=== PATIENT | female | born 1985 | race Caucasian/White ===

== ENCOUNTER → 2016-04-14 | Outpatient (CLI) | payer BC ==
[~2016-04-14] MED LIST: ACET500C PO; ADVI200T PO
== END ==
LOC: M SMT 14:17
PROVIDERS: ATTEND Advanced Practice Midwife
DX: O20.0 Threatened abortion (principal)

== ENCOUNTER → 2016-04-16 | Outpatient (CLI) | payer BC | LOC: M LAB 16:05 | PROVIDERS: ATTEND Advanced Practice Midwife | DX: O02.1 Missed abortion (principal) ==

== ENCOUNTER → 2016-05-28 | Outpatient (CLI) | payer BC ==
[2016-05-28 19:25] LABS: BASO % 0.6 % (0.0-1.0); EOS # 0.1 K/mm3 (0.0-0.50); EOS % 1.6 % (0.0-3.0); LARGE UNSTAINED CELL # 0.2 K/mm3 (0.0-0.4); LARGE UNSTAINED CELL % 2.5 % (0.0-4.0); LYMPH # 0.9 K/mm3 (1.5-6.5); LYMPH % 12.6 % (24.0-44.0); MEAN CORPUSCULAR HEMOGLOBIN 22.7 pg (27.0-33.0); MEAN CORPUSCULAR HGB CONC 30.4 g/dl (32.0-36.5); MEAN CORPUSCULAR VOLUME 74.8 fl (80.0-96.0); MONO # 0.5 K/mm3 (0.0-0.8); MONO % 7.1 % (0.0-5.0); NEUTROPHILS # 5.1 K/mm3 (1.8-7.7); NEUTROPHILS % 75.6 % (36.0-66.0); PLATELET COUNT, AUTOMATED 319 k/mm3 (150-450); RED CELL DISTRIBUTION WIDTH 17.9 % (11.5-14.5); WHITE BLOOD COUNT 6.7 K/mm3 (4.0-10.0)
[2016-05-29 11:43] LABS: CONTROL LINE INT CTR LINE PRESENT; HIV SCRN NEGATIVE (NEGATIVE); HIV SCRN1 NEGATIVE (NEGATIVE)
[2016-05-29 11:44] LABS: HBsAg Prenatal NEGATIVE (NEGATIVE)
== END ==
LOC: M LAB 17:12
PROVIDERS: ATTEND Advanced Practice Midwife
DX: Z34.01 Encounter for supervision of normal first pregnancy, first trimester (principal)

== ENCOUNTER → 2016-07-23 | Outpatient (CLI) | payer BC ==
--- NOTE | 2016-07-23 15:24 | REP ---
Obstetric ultrasound for anatomy: There is a single intrauterine gestation. position is variable. There is movement and cardiac activity. The heart rate is 150 beats per minute. The placenta is anterior. There is no placenta previa or abruptio. The placenta demonstrates grade zero maturity. Subjectively amniotic fluid volume is normal. The cervix measures 3.7 cm length. By today's measurements gestational age is 19 weeks 5 days with an AMI of 12/12/2016. Gestational age by LMP is 20 weeks 2 days. weight is 318 grams (0 pounds, 11 ounces). This is the 32nd percentile for 20 weeks 2 days. The following anatomic structures are identified and are unremarkable: Cranium, choroid plexus, i intracranial lateral ventricles. Cerebellum, facial profile, face, lungs, four-chamber heart, cardiac right and left ventricular outflow tracts, diaphragm, stomach, three-vessel cord, cord insertion, kidneys, bladder, spine and upper lower extremities. No anomalies are identified. Signed by Jayson Marques MD 07/23/2016 03:15 P
== END ==
LOC: M RAD 13:13
PROVIDERS: ATTEND Advanced Practice Midwife
DX: Z34.82 Encounter for supervision of other normal pregnancy, second trimester (principal); Z3A.19 19 weeks gestation of pregnancy

== ENCOUNTER → 2016-09-15 | Outpatient (CLI) | payer BC ==
[2016-09-15 12:57] LABS: MEAN CORPUSCULAR HEMOGLOBIN 25.7 pg (27.0-33.0); MEAN CORPUSCULAR HGB CONC 31.7 g/dl (32.0-36.5); MEAN CORPUSCULAR VOLUME 81.1 fl (80.0-96.0); RED CELL DISTRIBUTION WIDTH 16.1 % (11.5-14.5); WHITE BLOOD COUNT 12.1 K/mm3 (4.0-10.0)
== END ==
LOC: M LAB 11:06
PROVIDERS: ATTEND Advanced Practice Midwife
DX: Z34.82 Encounter for supervision of other normal pregnancy, second trimester (principal)

== ENCOUNTER → 2016-11-09 | Outpatient (REF) | payer BC ==
[~2016-11-09] MED LIST changes: +ACET50TA PO; +MOTR200T44 PO; +PRENTAB9 PO
== END ==
LOC: M LAB REF 17:13
PROVIDERS: ATTEND Specialist
DX: Z34.83 Encounter for supervision of other normal pregnancy, third trimester (principal)

== ENCOUNTER → 2016-11-14 | Outpatient (CLI) | payer BC ==
[~2016-11-14] VITALS: Ht 167.6 cm; Wt 76.0 kg
[~2016-11-14] MED LIST changes: +LR 1,000 ML IV ONE
[2016-11-14 09:39] VITALS: BP 115/74
[2016-11-14 10:26] LABS: BASO # 0.1 K/mm3 (0.0-0.2); BASO % 0.5 % (0.0-1.0); EOS # 0.1 K/mm3 (0.0-0.50); EOS % 1.1 % (0.0-3.0); LARGE UNSTAINED CELL # 0.1 K/mm3 (0.0-0.4); LYMPH # 1.2 K/mm3 (1.5-4.5); LYMPH % 8.6 % (24.0-44.0); MEAN CORPUSCULAR HEMOGLOBIN 24.5 pg (27.0-33.0); MEAN CORPUSCULAR VOLUME 76.6 fl (80.0-96.0); MONO # 0.9 K/mm3 (0.0-0.8); MONO % 6.9 % (0.0-5.0); NEUTROPHILS # 10.5 K/mm3 (1.8-7.7); NEUTROPHILS % 81.9 % (36.0-66.0); PLATELET COUNT, AUTOMATED 342 k/mm3 (150-450); RED CELL DISTRIBUTION WIDTH 16.5 % (11.5-14.5); WHITE BLOOD COUNT 12.8 K/mm3 (4.0-10.0)
[2016-11-14 10:37] VITALS: BP 111/73
[2016-11-14 13:17] VITALS: BP 111/65
--- NOTE | 2016-11-14 13:31 | REP ---
FOLLOWUP OB ULTRASOUND WITH BIOPHYSICAL PROFILE: 11/14/2016. Comparison: 07/23/2016. Clinical history: Spotting, decreased movement. Request for BPP, EFW and cervical length. Findings: There is a single intrauterine gestation in vertex position. Cervix is 3 cm long and closed. There is an anterior grade 2 placenta without previa or abruption. Visually the amniotic fluid volume is normal. The MATT is 9.5 cm with a normal range 7.6-24.6 and the largest fluid pocket is 4.9 cm. Mid cord umbilical artery Doppler shows an S/D ratio of 1.96 with normal forward diastolic flow and resistive index of 0.49. biometry: BPD 9 cm = 36 weeks 3 days HC 32.8 cm = 37 weeks 2 days AC 33.8 cm = 37 weeks 5 days FL 7.2 cm = 36 weeks 6 days HL 6.4 cm = 37 weeks 1 day This gives average ultrasound age 37 weeks 1 day. By initial ultrasound she is 36 weeks with EDC 12/12/2016 by LMP 36 weeks 4 days with EDC 12/08/2016. Measurement ratios are all in the normal range. The estimated weight 3174 grams or 6 pounds 15 ounces is 65th percentile for dating based on LMP. heart 131 and regular. Anatomy structures visible include the cranial vault, lateral ventricles, choroid plexus, thalami, cavum septum pellucidum, lungs, and four-chamber heart view, the diaphragm, left-sided stomach bubble, three-vessel cord with the cord insertion and the kidneys and bladder. On previous study in July the estimated weight was 32nd percentile, today it is 65th percentile. Biophysical profile: Breathing 2 Movement 2 Tone 2 AFV 2 BPP is 8/ 8. Signed by Garth White MD 11/14/2016 07:58 P
== END ==
LOC: M LDO 09:13
PROVIDERS: ATTEND Obstetrics & Gynecology
DX: O26.853 Spotting complicating pregnancy, third trimester (principal); O36.8130 Decreased fetal movements, third trimester, not applicable or unspecified; Z3A.36 36 weeks gestation of pregnancy; Z88.1 Allergy status to other antibiotic agents

== ENCOUNTER 2016-11-20 12:01 | Inpatient (IN) | payer BC ==
[~2016-11-20] VITALS: Ht 167.6 cm; Wt 76.0 kg
[2016-11-20] VITALS (7 sets, daily range): BP systolic 90–126; BP diastolic 55–72
[~2016-11-20 12:01] MED LIST changes: -ACET50TA PO; -LR 1,000 ML IV ONE; -MOTR200T44 PO
[2016-11-20] MEDS ORDERED: LACTATED RINGER'S 1000 ML IV STA (12:32)
[2016-11-20] MEDS ORDERED: PENICILLIN G POTASSIUM IV 5 MU in D5W MINI-BAG PLUS 100 ML IV STA (12:32)
[2016-11-20] MEDS ORDERED: LR 1,000 ML IV SCH (13:00)
[2016-11-20] MEDS ORDERED: OXYTOCIN DRIP 30 UNITS in APPROPRIATE DILUENT 1 EA IV SCH (13:00)
[2016-11-20 13:18] LABS: MEAN CORPUSCULAR HEMOGLOBIN 24.3 pg (27.0-33.0); MEAN CORPUSCULAR HGB CONC 31.4 g/dl (32.0-36.5); MEAN CORPUSCULAR VOLUME 77.3 fl (80.0-96.0); RED CELL DISTRIBUTION WIDTH 16.8 % (11.5-14.5); WHITE BLOOD COUNT 11.1 K/mm3 (4.0-10.0)
[2016-11-20] MEDS ORDERED: PENICILLIN G POTASSIUM IV 2.5 MU in D5W 100 ML IV SCH (17:00)
--- NOTE | 2016-11-20 22:21 | HPE ---
DATE OF ADMISSION: 11/20/2016 31-year-old 3, para 1-0-1-1, estimated date of delivery 12/08/2016 presents at 37 weeks 3 days after spontaneous rupture of membranes, clear fluid [id number]. Reports only mild cramping. Fetus is active. No bleeding. Last normal menstrual period 03/03/2016 for AMI of 12/08/2016, sonogram at 6 weeks confirmed date. Anatomy scan within normal limits. Appropriate care. OBSTETRICAL HISTORY: November 2013 normal spontaneous vaginal , viable female, 41 weeks, 7 pounds, 7 ounces. 2016 early miscarriage. ALLERGIES: She is allergic to CIPROFLOXACIN MEDICAL-SURGICAL: History of Crohn disease FAMILY HISTORY: Noncontributory. SOCIAL HISTORY: . Father of the baby present and supportive. Denies tobacco, alcohol, drugs or abuse. OBJECTIVE: Prepregnancy weight 130, total weight gain 48 pounds. A+, antibody negative, Pap within normal limits. Rubella immune, VDRL, hepatitis B, hepatitis C, human immunodeficiency virus (HIV), gonorrhea, Chlamydia all negative. Declined genetic screening. 1-hour glucose 94 and group B strep is positive. Vital signs are stable. She is in no apparent distress. Heart rate is regular. Respirations are easy. Abdomen is soft, gravid, longitudinal lie. Irregular contractions 45 minutes apart. heart 125, moderate variability, occasional variable deceleration, clear fluid draining per vagina. Sterile vaginal exam, 2 cm, 80% -1 station, cephalic. ASSESSMENT: Multip at term, early labor, premature rupture of membranes (PROM) category two tracing. PLAN: Admit, hydrate group B strep prophylaxis. Consider Pitocin augmentation. Anticipate normal spontaneous vaginal . The patient plans to labor ad satya. MTDD
[2016-11-20] MEDS: PENICILLIN G POTASSIUM IV 2.5 MU in D5W 100 ML IV SCH (23:00)
[2016-11-21] VITALS (8 sets, daily range): BP systolic 94–132; BP diastolic 62–78
[2016-11-21] MEDS ORDERED: BUTORPHANOL 2 MG/ML INJ (J0595) IV ONE ×2 (02:15→05:00)
[2016-11-21] MEDS ORDERED: PROMETHAZINE INJ 25 MG/ML VIAL (J2550) IV ONE (02:15)
[2016-11-21] MEDS: PENICILLIN G POTASSIUM IV 2.5 MU in D5W 100 ML IV SCH (03:02)
[2016-11-21] MEDS ORDERED: IBUPROFEN 800 MG TAB PO PRN (05:45)
[2016-11-21] MEDS ORDERED: DOCUSATE SODIUM 100 MG CAP PO PRN (05:45)
[2016-11-21] MEDS ORDERED: DIBUCAINE 1% OINTMENT 30GM TOP PRN (05:45)
[2016-11-21] MEDS ORDERED: ACETAMINOPHEN 500 MG TAB PO PRN (05:45)
[2016-11-21] MEDS ORDERED: MEASLES,MUMPS,RUBELLA VACCINE INJ (MMR-II) (90707) SC SCH (05:45)
[2016-11-21] MEDS ORDERED: RHOGAM 300 MCG (1500 IU) INJ (J2790) IM SCH (05:45)
[2016-11-21] MEDS ORDERED: LIDOCAINE 1% MDV INJ 50 ML VIAL INFIL ONE (05:45)
[2016-11-21] MEDS ORDERED: METHYLERGONOVINE MALEATE 0.2 MG TAB PO PRN (05:45)
[2016-11-21] MEDS ORDERED: MOM 30ML SUSPENSION UDC PO PRN (05:45)
[2016-11-21] MEDS: PRENATAL VITAMINS CHEWABLE TABLET PO SCH (09:00)
[2016-11-22 07:00] VITALS: BP 133/67
[2016-11-22] MEDS ORDERED: ACET50TA PO (09:00)
[2016-11-22] MEDS ORDERED: MOTR200T44 PO (09:00)
[2016-11-22] MEDS: PRENATAL VITAMINS CHEWABLE TABLET PO SCH (09:00)
--- NOTE | 2016-11-22 10:41 | DN ---
DATE: 11/21/2016 Spontaneous rupture of membranes, clear fluid, 11/20/2016 at 0930 hours. Onset of mild contractions thereafter at 1230. Pitocin augmentation of labor. Utilized Stadol for labor coping. Fully dilated 0457. Viable female delivered OWEN through tight nuchal cord at 0503. Spontaneous respirations with stimulation. Transitioned on maternal abdomen. Cord doubly clamped and cut once pulsations ceased. scores 8 and 9. Placenta Dolan intact with three-vessel cord at 0511. Fundus firmed with massage and IV Pitocin bolus. First-degree perineal laceration and left labial abrasion repaired with Vicryl Rapide after infiltration with lidocaine. Estimated blood loss 100 mL. Infant weight 2190 grams, 6 pounds 6 ounces. Parents are naming their child Radha. Sponge, sharp and instrument count correct. Mother and baby doing well.
== END 2016-11-22 12:00 | disposition home or self-care (01) | DRG 560 ==
LOC: M LDO 12:01 → M LDI 12:41 → M OBS 11-21 08:39
PROVIDERS: ADMIT Advanced Practice Midwife; ATTEND Advanced Practice Midwife
PROC: 10E0XZZ Delivery of Products of Conception, External Approach (ICD-10-PCS; principal; 2016-11-21)
PROC: 0HQ9XZZ Repair Perineum Skin, External Approach (ICD-10-PCS; 2016-11-21)
DX: O42.02 Full-term premature rupture of membranes, onset of labor within 24 hours of rupture (principal); O99.820 Streptococcus B carrier state complicating pregnancy; Z37.0 Single live birth; Z3A.37 37 weeks gestation of pregnancy; Z88.8 Allergy status to other drugs, medicaments and biological substances; O69.89X0 Labor and delivery complicated by other cord complications, not applicable or unspecified; O70.0 First degree perineal laceration during delivery

== ENCOUNTER 2018-02-24 23:36 | Emergency (ER) | payer BC ==
[2018-02-25 01:12] LABS: BASO # 0.1 10^3/uL (0.0-0.2); BASO % 0.4 % (0.0-1.0); EOS # 0.1 10^3/uL (0.0-0.50); EOS % 1.1 % (0.0-3.0); HEMATOCRIT 35.2 % (36.0-47.0); HEMOGLOBIN 10.9 g/dl (12.0-15.5); IMMATURE GRANULOCYTE % 0.4 % (0-3.0); LYMPH # 0.7 10^3/uL (1.5-4.5); LYMPH % 5.4 % (24.0-44.0); MEAN CORPUSCULAR HEMOGLOBIN 22.3 pg (27.0-33.0); MEAN CORPUSCULAR VOLUME 72.1 fl (80.0-96.0); MONO # 0.7 10^3/uL (0.0-0.8); MONO % 5.2 % (0.0-5.0); NEUTROPHILS # 11.6 10^3/uL (1.8-7.7); NEUTROPHILS % 87.5 % (36.0-66.0); PLATELET COUNT, AUTOMATED 420 10^3/uL (150-450); RED BLOOD COUNT 4.88 10^6/uL (4.00-5.40); RED CELL DISTRIBUTION WIDTH 17.4 % (11.5-14.5); WHITE BLOOD COUNT 13.2 10^3/uL (4.0-10.0)
[2018-02-25 01:44] LABS: ALBUMIN/GLOBULIN RATIO 0.73 (1.00-1.93); ALKALINE PHOSPHATASE 83 U/L (45-117); ALT/SGPT 17 U/L (12-78); ANION GAP 7 MEQ/L (8-16); AST/SGOT 16 U/L (7-37); BILIRUBIN,DIRECT 0.1 MG/DL (0.0-0.2); BILIRUBIN,TOTAL 0.3 MG/DL (0.2-1.0); BLOOD UREA NITROGEN 9 MG/DL (7-18); CALCIUM LEVEL 8.8 MG/DL (8.5-10.1); CARBON DIOXIDE LEVEL 26 MEQ/L (21-32); CHLORIDE LEVEL 108 MEQ/L (98-107); CREATININE FOR GFR 0.76 MG/DL (0.55-1.30); GLOMERULAR FILTRATION RATE > 60.0 (>60); GLUCOSE, FASTING 101 MG/DL (70-100); LIPASE 100 U/L (73-393); POTASSIUM SERUM 4.1 MEQ/L (3.5-5.1); SODIUM LEVEL 141 MEQ/L (136-145); TOTAL PROTEIN 7.1 GM/DL (6.4-8.2)
[2018-02-25] MEDS ORDERED: ISOVUE-370 76% 100ML VIAL (Q9967) As Ordered (02:14)
[2018-02-25] MEDS: predniSONE 20 MG TAB PO (03:45)
[2018-02-25] MEDS: MESALAMINE 250 MG CR CAP PO (03:45)
== END 2018-02-25 04:01 | disposition home or self-care (01) ==
LOC: M ED 23:36
DX: K50.919 Crohn's disease, unspecified, with unspecified complications (principal); Z88.1 Allergy status to other antibiotic agents
CPT/HCPCS: Q9967

== ENCOUNTER → 2018-06-27 | Outpatient (REF) | payer BC ==
[~2018-06-27] MED LIST changes: +MAPA500T2 PO; +MOTR200T44 PO; +PENT500C PO; +PRED20TA PO; +ZOFR4TAB14 PO
[2018-06-27 13:15] LABS: BASO % 0.5 % (0.0-1.0); EOS # 0.1 10^3/uL (0.0-0.50); EOS % 1.7 % (0.0-3.0); HEMATOCRIT 32.8 % (36.0-47.0); HEMOGLOBIN 10.5 g/dl (12.0-15.5); LYMPH # 1.1 10^3/uL (1.5-4.5); LYMPH % 13.1 % (24.0-44.0); MEAN CORPUSCULAR HEMOGLOBIN 24.4 pg (27.0-33.0); MEAN CORPUSCULAR VOLUME 76.1 fl (80.0-96.0); MONO # 0.7 10^3/uL (0.0-0.8); MONO % 7.9 % (0.0-5.0); NEUTROPHILS # 6.3 10^3/uL (1.8-7.7); NEUTROPHILS % 76.4 % (36.0-66.0); PLATELET COUNT, AUTOMATED 358 10^3/uL (150-450); RED BLOOD COUNT 4.31 10^6/uL (4.00-5.40); WHITE BLOOD COUNT 8.2 10^3/uL (4.0-10.0)
[2018-06-27 13:26] LABS: CHLAMYDIA DNA AMPLIFICATION NEGATIVE (NEGATIVE); GC DNA AMPLIFICATION NEGATIVE (NEGATIVE)
[2018-06-27 13:37] LABS: HEPATITIS C VIRUS ABY INDEX 0.1 INDEX (<0.8); HIV 1&2 SCREEN CENTAUR NEGATIVE (NEGATIVE); RUBELLA IgG QUALITATIVE IMMUNE (IMMUNE)
== END ==
LOC: M LABDRAW1 11:48
PROVIDERS: ATTEND Advanced Practice Midwife
DX: Z34.81 Encounter for supervision of other normal pregnancy, first trimester (principal); Z3A.09 9 weeks gestation of pregnancy

== ENCOUNTER → 2018-08-18 | Outpatient (CLI) | payer BC ==
--- NOTE | 2018-08-19 05:31 | REP ---
Clinical: Anatomical evaluation. Comparison: None . Findings: Examination demonstrates a single live intrauterine in transverse (head to maternal left) presentation. motion is identified by technologist. Placenta is noted anterior and grade zero without evidence for placenta previa or abruption. Amniotic fluid volume is normal. Cervix measures 5.4 cm in length and appears closed. No evidence for nuchal cord. Gestational age by LMP 19 weeks 6 days with AMI 01/06/2019 . Gestational age by current measurements 19 weeks 5 days with AMI I would 28 19 . FHR equals 137 beats per minute. BPD 4.7 cm 20 weeks 1 day HC 17.4 cm 19 weeks 6 days AC 14.9 cm 20 weeks 1 day FL 3.1 cm 19 weeks 4-day HL 2.8 cm 19 weeks 1 day HC/AC ratio 1.17 Estimated weight 319 grams ( 47th percentile). Anatomical assessment demonstrates normal structures including cranium, choroid plexus, cavum, cerebellum/posterior fossa, facial features, lungs, four-chamber heart/ventricular outflow tracts, diaphragm, stomach, cord insertion/three-vessel cord, kidneys/bladder, spine, and extremities. Impression: Single live intrauterine in transverse lie demonstrating appropriate interval growth. Anatomical assessment is complete and normal. No gross abnormalities are identified. Electronically Signed by Keven Dimas MD 08/19/2018 05:22 A
== END ==
LOC: M RAD 11:59
PROVIDERS: ATTEND Advanced Practice Midwife
DX: Z34.82 Encounter for supervision of other normal pregnancy, second trimester (principal); Z3A.19 19 weeks gestation of pregnancy

== ENCOUNTER → 2018-10-14 | Outpatient (CLI) | payer BC ==
[~2018-10-14] MED LIST changes: +CALC500C15 PO; +CALTAB PO; +[UNRECOGNIZED DRUG - OTHER] PO
[2018-10-14 14:29] LABS: HEMOGLOBIN 9.7 g/dl (12.0-15.5); MEAN CORPUSCULAR HEMOGLOBIN 26.1 pg (27.0-33.0); MEAN CORPUSCULAR HGB CONC 31.3 g/dl (32.0-36.5); MEAN CORPUSCULAR VOLUME 83.3 fl (80.0-96.0); PLATELET COUNT, AUTOMATED 310 10^3/uL (150-450); RED BLOOD COUNT 3.72 10^6/uL (4.00-5.40); WHITE BLOOD COUNT 11.8 10^3/uL (4.0-10.0)
== END ==
LOC: M LAB 12:53
PROVIDERS: ATTEND Advanced Practice Midwife
DX: Z34.82 Encounter for supervision of other normal pregnancy, second trimester (principal)

== ENCOUNTER 2018-10-17 17:49 | Inpatient (IN) | payer BC ==
[~2018-10-17] VITALS: Ht 167.6 cm; Wt 75.7 kg
[~2018-10-17 17:49] MED LIST changes: -CALC500C15 PO; -CALTAB PO; -[UNRECOGNIZED DRUG - OTHER] PO
[2018-10-17] MEDS ORDERED: CALC500C15 PO (18:01)
[2018-10-17] MEDS ORDERED: [UNRECOGNIZED DRUG - OTHER] PO (18:01)
[2018-10-17] MEDS ORDERED: CALTAB PO (18:01)
[2018-10-17 18:09] VITALS: BP 108/55
[2018-10-17] MEDS ORDERED: LACTATED RINGER'S 1000 ML IV STA (18:15)
[2018-10-17 18:37] LABS: HEMATOCRIT 33.2 % (36.0-47.0); HEMOGLOBIN 10.4 g/dl (12.0-15.5); MEAN CORPUSCULAR HEMOGLOBIN 25.5 pg (27.0-33.0); MEAN CORPUSCULAR HGB CONC 31.3 g/dl (32.0-36.5); MEAN CORPUSCULAR VOLUME 81.4 fl (80.0-96.0); PLATELET COUNT, AUTOMATED 267 10^3/uL (150-450); RED BLOOD COUNT 4.08 10^6/uL (4.00-5.40)
[2018-10-17] MEDS ORDERED: ACETAMINOPHEN *IV* 1,000 MG in APPROPRIATE DILUENT 1 EA IV ONE (19:00)
[2018-10-17 19:04] LABS: APPEARANCE, URINE HAZY (CLEAR); BACTERIA, URINE AUTO 1+ (NEGATIVE); BILIRUBIN, URINE AUTO NEGATIVE (NEGATIVE); BLOOD, URINE BLOOD NEGATIVE (NEGATIVE); COLOR, URINE YELLOW (YELLOW); GLUCOSE, URINE (UA) AUTO NEGATIVE (NEGATIVE); KETONE, URINE AUTO TRACE mg/dL (NEGATIVE); LEUKOCYTE ESTERASE, URINE AUTO TRACE (NEGATIVE); MUCUS, URINE SMALL (NEGATIVE); NITRITE, URINE AUTO NEGATIVE (NEGATIVE); PROTEIN, URINE AUTO NEGATIVE (NEGATIVE); RBC, URINE AUTO 0 /HPF (0-3); SPECIFIC GRAVITY URINE AUTO 1.013 (1.002-1.035); SQUAMOUS EPITHELIAL CELL UR AU 1 /HPF (0-6); UROBILINOGEN, URINE AUTO 0.2 mg/dL (0.0-2.0); WBC, URINE AUTO 1 /HPF (0-3)
[2018-10-17 19:10] VITALS: BP 120/60
[2018-10-17 19:26] LABS: ALBUMIN 2.3 GM/DL (3.2-5.2); ALT/SGPT 10 U/L (12-78); AMYLASE 55 U/L (25-115); BILIRUBIN,TOTAL 0.5 MG/DL (0.2-1.0); BLOOD UREA NITROGEN 8 MG/DL (7-18); CALCIUM LEVEL 8.8 MG/DL (8.5-10.1); CARBON DIOXIDE LEVEL 22 MEQ/L (21-32); CHLORIDE LEVEL 107 MEQ/L (98-107); CREATININE FOR GFR 0.62 MG/DL (0.55-1.30); GLOMERULAR FILTRATION RATE > 60.0 (>60); GLUCOSE, FASTING 83 MG/DL (70-100); LIPASE 95 U/L (73-393); POTASSIUM SERUM 4.1 MEQ/L (3.5-5.1); SODIUM LEVEL 139 MEQ/L (136-145); TOTAL PROTEIN 6.8 GM/DL (6.4-8.2)
[2018-10-17] MEDS: ONDANSETRON 4MG/2ML VIAL (J2405) IV PRN (19:39)
[2018-10-17] MEDS: LR 1,000 ML IV SCH (19:40)
[2018-10-17 21:24] VITALS: BP 96/52
--- NOTE | 2018-10-17 21:24 | IPNPDOC ---
Text Note Date of Service The patient was seen on 10/17/18. NOTE Subjective: Patient is a 32-year-old female who is a at 28+ weeks pre gnant with an AMI of 01/06/19 based off of her LMP and consistent with her first trimester ultrasound. She initiated care in her first trimester with [facility]. Her has been complicated by a Crohn's flare-up. She reports that her abdominal pain started at the end of September. She was given Prednisone 20 mg BID for 4 days to help with her flare on 10/03/18. Patient reports some improvement with this therapy. She states she became very uncomfortable today with spasms and stabbing pain in her upper abdomen that radiates to her mid back. She also reports chills that started this afternoon. She denies any dysuria or frequency. She states she feels like she has in the past when she has had a flare-up but reports she hasn't gotten a fever before. She does report nausea but has not vomited. Medical history: Crohn's (stopped maintenance medication in 2013 prior to and has not been seen by specialist since then as her physician retired), IBS-diarrhea Surgical history: none Social history: . Former smoker. No history of alcohol or drug abuse. Patient is a registered nurse. No history of abuse. Family history: non-contributory. Objective: labs and vital signs: see below. FHR on admission was in the 200's and decreased to 175 with a fluid bolus and then 150's after she received acetaminophen. FHR is appropriate for gestational age. No contractions noted. General: A+Ox3. Cardiovascular: regular rate and rhythm without murmur. Respiratory: regular rate with no use of accessory muscles. Lungs clear bilaterally. Abdomen: gravid. Non-tender to palpation. Negative CVA tenderness. Assessment: IUP at 28.3 weeks gestation, flare up of Crohn's, fever Plan: Saline lock with IV hydration ordered. Acetaminophen ordered via IV for fever. Zofran ordered for nausea. Labs and blood cultures ordered. Dr. Peterson consulted on plan of care. Patient does not have an elevated WBC count or any abnormal lab values. Her fever has improved with acetaminophen and her pain has improved to a 3/10 from a 7/10. We will continue to observe at this time. NST's every 4 hours. Will start GI consult in am. VS,Fishbone, I+O VS, Fishbone, I+O Laboratory Tests 10/17/18 18:27 Red Blood Count 4.08, Mean Corpuscular Volume 81.4, Mean Corpuscular Hemoglobin 25.5 L, Mean Corpuscular Hemoglobin Concent 31.3 L, Red Cell Distribution Width 15.5 H, Calcium Level 8.8, Aspartate Amino Transf (AST/SGOT) 23, Alanine Aminotransferase (ALT/SGPT) 10 L, Alkaline Phosphatase 97, Total Bilirubin 0.5, Total Protein 6.8, Albumin 2.3 L Vital Signs Date Time Temp Pulse Resp B/P (MAP) Pulse Ox O2 Delivery O2 Flow Rate FiO2 10/17/18 19:49 100.0 10/17/18 19:10 114 16 120/60 (80) Vital Signs Label Value Date Time Patient Temperature 101.4 degrees F 10/17/181808 Temperature Source Temporal 10/17/181808 Pulse 112 10/17/181808 Respiratory Rate 16 bpm 10/17/181808 Blood Pressure Assessment 108/55 (72) 10/17/181808 Source Automatic Cuff (NIBP) Vital Signs Label Value Date Time Patient Temperature 102.8 degrees F 10/17/181899 Temperature Source Temporal 10/17/181899 Respiratory Rate 16 bpm 10/17/181899 ANDI HOWARD CNM Oct 17, 2018 21:24
[2018-10-18] VITALS (9 sets, daily range): BP systolic 77–106; BP diastolic 39–58
[2018-10-18] MEDS ORDERED: ACETAMINOPHEN *IV* 1,000 MG in APPROPRIATE DILUENT 1 EA IV ONE (02:15)
[2018-10-18] MEDS: LR 1,000 ML IV SCH ×3 (02:32→20:50)
[2018-10-18] MEDS: ONDANSETRON 4MG/2ML VIAL (J2405) IV PRN (02:32)
[2018-10-18] MEDS: ACETAMINOPHEN 500 MG TAB PO PRN ×2 (02:32→08:51)
[2018-10-18 06:24] LABS: BASO % 0.2 % (0.0-1.0); EOS % 0.1 % (0.0-3.0); HEMATOCRIT 27.7 % (36.0-47.0); HEMOGLOBIN 8.9 g/dl (12.0-15.5); LYMPH % 1.9 % (24.0-44.0); MEAN CORPUSCULAR HEMOGLOBIN 26.3 pg (27.0-33.0); MEAN CORPUSCULAR HGB CONC 32.1 g/dl (32.0-36.5); MONO # 0.4 10^3/uL (0.0-0.8); MONO % 3.3 % (0.0-5.0); NEUTROPHILS # 12.1 10^3/uL (1.8-7.7); NEUTROPHILS % 93.9 % (36.0-66.0); PLATELET COUNT, AUTOMATED 219 10^3/uL (150-450); RED BLOOD COUNT 3.38 10^6/uL (4.00-5.40); WHITE BLOOD COUNT 12.8 10^3/uL (4.0-10.0)
[2018-10-18 06:44] LABS: LYMPH # 0.2 10^3/uL (1.5-4.5)
[2018-10-18] MEDS ORDERED: FIORICET TAB PO ONE (16:00)
--- NOTE | 2018-10-18 16:22 | REP ---
MRI ABDOMEN WITHOUT CONTRAST: Multiple sequences obtained in the axial, coronal and sagittal planes without the use of intravenous contrast. A gravid uterus is noted containing a fetus with an estimated age of 28 weeks and an anterior placenta. The liver, spleen, adrenals, pancreas and kidneys appear essentially unremarkable. There is mild fullness of the right renal pelvis. Bowel loops on the left appear unremarkable. On the right, there does appear to be a long segment of thickening of the distal ileum as seen on prior CT of 02/25/2018. Trace surrounding free fluid is seen. There is no definite thickening of the right colon. I do not see evidence of adenopathy. Gallbladder is grossly unremarkable. I do not see evidence of biliary dilatation. IMPRESSION: Once again, there is a fairly long segment of thickening of the terminal ileum with trace surrounding free fluid compatible with Crohn's disease. Gravid uterus noted with fetus approximately 28 to 29 weeks gestational age and anterior placenta. Electronically Signed by Jayson Barragan MD 10/20/2018 10:56 A
--- NOTE | 2018-10-18 16:29 | REP ---
MRI PELVIS WITHOUT CONTRAST: Multiple sequences obtained in the axial, coronal and sagittal planes without the use of intravenous contrast material. A gravid uterus is noted containing a 28 to 29 week fetus. Prominent vasculature is seen surrounding the uterus. Visualized colon demonstrates no definite wall thickening. Portions of the distal ileum appear thickened, better seen on today's MRI of the abdomen. Other visualized pelvic structures appear unremarkable. I see no evidence of adenopathy. IMPRESSION: Thickened distal ileum compatible with Crohn's disease. No other pelvis abnormality. Electronically Signed by Jayson Barragan MD 10/20/2018 10:56 A
[2018-10-18] MEDS: methylPREDNISolone INJ 40 MG/1 ML VIAL (J2920) IV SCH (17:44)
--- NOTE | 2018-10-18 18:30 | CR ---
DATE OF CONSULTATION: 10/18/2018 STATUS OF THE PATIENT: Inpatient. CONSULTATION REPORT FOR: Obstetric (OB) service, Dr. Peterson. REASON FOR CONSULTATION: Patient with Crohn's flare. 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 The patient has discontinued her maintenance medications (pentasa) several years ago after one of her pregnancies in 2013 and has had no issues since that time. The patient at this time is 28 weeks and has been doing well throughout her until the end of September 2018 for approximately 7-10 days has been having increasing bouts of right lower quadrant abdominal discomfort associated with some loose stools and some nausea. She was started on a four-day course of prednisone therapy for a presumed Crohn's flare which has improved her symptoms somewhat. However, on 10/17/2018, she suddenly had increasing abdominal pain and spasms and presented to the emergency room for further management. The patient states that her symptoms are classic as she remembers having a previous Crohn's flare in the past. She is somewhat concerned that she does have a little bit more of a fever which is unusual for her previous flares. She denies any severe nausea, although her abdominal pain and nausea does increase with eating. She denies any bloody stools. She denies any shaking chills. Her overnight course since yesterday has been noted for some intermittent bouts of crampy abdominal pain and a single temperature reading of 102.1 which has resolved back to 99.8 at this time. PAST MEDICAL HISTORY: Crohn's disease diagnosed at age 16, maintained on Pentasa and intermittent courses of prednisone approximately once or twice a year at the most, and no maintenance medications since at least 2013. PAST SURGICAL HISTORY: None. FAMILY HISTORY: Negative for colorectal carcinoma, inflammatory bowel disease. SOCIAL HISTORY: Negative for tobacco. Negative for alcohol. REVIEW OF SYSTEMS: GENERAL: Negative for night sweats, fevers or chills. Negative for significant weight loss. PULMONARY: Negative hemoptysis, pleuritic-type chest pain. CARDIAC: Negative for orthopnea, paroxysmal nocturnal dyspnea (PND). GASTROINTESTINAL (GI): As per history of present illness (HPI). GENITOURINARY (): Negative for hematuria, dysuria. MUSCULOSKELETAL: Negative for myalgias, arthralgias. SKIN: Negative for rashes or skin lesions. PHYSICAL EXAMINATION: Temperature 97.9, pulse 83, respiratory rate is 16, blood pressure 117/39. GENERAL: She is awake, alert and oriented times, comfortably in bed. She is nontoxic in appearance. HEAD, EYES, EARS, NOSE AND THROAT: Grossly without abnormalities. Sclerae are free of icterus. Neck is supple. No lymphadenopathy or thyromegaly. CHEST: Clear bilaterally. HEART: Regular rate and rhythm, S1, S2. No murmurs or gallops are appreciated. ABDOMEN: Gravid. It is soft, moderately tender in right lower quadrant and right flank area to deep palpation. There is no rebound tenderness. EXTREMITIES: Negative for edema. LABORATORY FINDINGS: WBC 12.8, hemoglobin 8.9, hematocrit 27.7, platelet count is 219. BUN 8, creatinine 0.62, albumin 2.3, AST 23, ALT 10, sodium 139, potassium 4.1, chloride 107, CO2 22. 10/18/2018 MRI abdomen and pelvis: Impression: 1. Once again there is fairly long segment of thickening of the terminal ileum with trace surrounding free fluid compatible with Crohn's disease. 2. Gravid uterus is noted with fetus approximately 28-29 weeks gestational age and anterior placenta. IMPRESSION: 1. Crohn's disease flare. 2. at 28 weeks. RECOMMENDATIONS: 1. Solu-Medrol 40 mg IV every 12 hours times the next 48 hours. At which point, we will try to switch her over to either prednisone 40 bid or to budesonide 9 mg daily. 2. Pentasa 500 mg by mouth three times a day (I will start the Pentasa mainly because the patient has had good results with this in the past). 3. Depending on progress over the next 48 hours, additional recommendations will follow. MTDD
[2018-10-18] MEDS: DOCUSATE SODIUM 100 MG CAP PO PRN (20:50)
[2018-10-18] MEDS: MESALAMINE 250 MG CR CAP PO SCH (20:50)
[2018-10-19 02:51] VITALS: BP 85/48
[2018-10-19] MEDS ORDERED: BUTORPHANOL 2 MG/ML INJ (J0595) IV ONE (03:45)
[2018-10-19] MEDS ORDERED: PROMETHAZINE INJ 25 MG/ML VIAL (J2550) IV ONE (03:45)
[2018-10-19 06:25] VITALS: BP 80/41
[2018-10-19 06:26] VITALS: BP 87/54
[2018-10-19] MEDS: LR 1,000 ML IV SCH ×2 (06:36→20:35)
[2018-10-19] MEDS: methylPREDNISolone INJ 40 MG/1 ML VIAL (J2920) IV SCH ×2 (06:36→18:17)
[2018-10-19 06:39] VITALS: BP 91/51
--- NOTE | 2018-10-19 08:05 | NUR ---
Progress Note S: Reports one episode of pain overnight, spontaneously resolved. Tolerating clear PO fluids. After eating dinner (small amount of salad) had some pain. Denies contractions, vaginal bleeding and LOF. Fetus is active. No rectal bleeding. O:T98.1 P68 R16, B/P 91/51 A&O x 3 NAD EFM not applied Abdomen: soft, non-tender to palpation A: IUP a 28 and 2/7 weeks. Chron's disease P: Continue IV solumedrol, advance diet slowly. Transfer to antepartum unit. continue with IV steroids for remission. NST once daily. Plan growth sono at 30 weeks. Observe
[2018-10-19] MEDS: MESALAMINE 250 MG CR CAP PO SCH ×3 (09:00→20:34)
--- NOTE | 2018-10-19 17:46 | IPN ---
DATE: 10/19/2018 Ms. Gama has been doing relatively well. She has had significant improvement in her abdominal pain with the third dose of Solu-Medrol since yesterday. She is due for one more dose in the morning. She has had a small meal this morning that went down quite well. She had not developed any further abdominal pain. She does have still a little bit of fear of eating and did not push it too hard. She has not had any further febrile episodes. She has not had any stools and actually is complaining of some constipation. PHYSICAL EXAMINATION: Temperature 98.1, pulse is 68, respiratory rate 16, blood pressure 91/51. General: She is awake, alert, and oriented times three, nontoxic. She looks well. Abdomen is soft. Positive, good bowel sounds throughout and only slightly tender on very deep palpation only. There are no peritoneal signs, rebound tenderness. Her abdomen is gravid. IMPRESSION: 1. Crohn flare with abdominal pain and nausea. 2. A 29-week . RECOMMENDATIONS: 1. Continue Solu-Medrol dose for two or three more doses, and then this can probably be discontinued. 2. Start budesonide/Entocort EC 9 mg daily tomorrow morning. 3. Will start her on MiraLax 17 grams daily for new-onset constipation. 4. While we get her Crohn's disease under control, I would keep her on a low-fiber/low-residue diet. 5. Depending on the progress, we could consider discharging her home in the next 36-48 hours with a followup with me in the office for further adjustment. 6. Continue Pentasa 500 mg by mouth three times a day for now, (I note that she claims that pentasa worked well for her in the past, however clasically there is little if any role for 5-ASA's in Crohns disease. I will discuss with her again, as I would prefer she come off this, to limit exposure to potentialy unnecessary medications) KATTY
[2018-10-19 19:14] VITALS: BP 102/57
[2018-10-19] MEDS: DOCUSATE SODIUM 100 MG CAP PO PRN (20:35)
[2018-10-19 20:50] VITALS: BP 106/59
[2018-10-20 02:00] VITALS: BP 84/42
[2018-10-20] MEDS: LR 1,000 ML IV SCH ×2 (04:35→16:14)
[2018-10-20] MEDS: methylPREDNISolone INJ 40 MG/1 ML VIAL (J2920) IV SCH ×2 (05:53→18:27)
[2018-10-20 06:00] VITALS: BP 96/54
[2018-10-20 06:23] LABS: BASO % 0.1 % (0.0-1.0); EOS # 0.1 10^3/uL (0.0-0.50); EOS % 0.7 % (0.0-3.0); HEMATOCRIT 25.7 % (36.0-47.0); LYMPH # 1.1 10^3/uL (1.5-4.5); LYMPH % 14.2 % (24.0-44.0); MEAN CORPUSCULAR HEMOGLOBIN 25.3 pg (27.0-33.0); MEAN CORPUSCULAR HGB CONC 31.1 g/dl (32.0-36.5); MEAN CORPUSCULAR VOLUME 81.3 fl (80.0-96.0); MONO # 1.2 10^3/uL (0.0-0.8); MONO % 16.2 % (0.0-5.0); NEUTROPHILS % 67.9 % (36.0-66.0); PLATELET COUNT, AUTOMATED 229 10^3/uL (150-450); RED BLOOD COUNT 3.16 10^6/uL (4.00-5.40); WHITE BLOOD COUNT 7.4 10^3/uL (4.0-10.0)
--- NOTE | 2018-10-20 06:48 | NUR ---
Progress Note S: Reports significant episode this morning at around 0500 of abdominal pain related to her Chron's. She is tolerating a low residue diet, although in small portions. She denies any regular contractions, LOF and vaginal bleeding. Fetus continues to be active. She has not utilized any pain medication for these episodes because she states they typically last for about 15-20 minutes and then resolve. She has not had a BM in 3 days. O: T98.3, P64, R16, B/P is 96/54. She is A&Ox3 and appears comfortable this morning EFM is not applied at this time. Labs are pending. Abdomen: soft, non-tender to palpation. A: IUP at 28 5/7, Chron's Disease flare P: GI has medication planned to start today in addition to currently prescribed medications. May consider 2-3 more doses of IV solumedrol. Consider D/C to home in 36 hours per GI Consult.
[2018-10-20 06:54] LABS: ALBUMIN 1.8 GM/DL (3.2-5.2); ALT/SGPT 16 U/L (12-78); BILIRUBIN,TOTAL 0.2 MG/DL (0.2-1.0); BLOOD UREA NITROGEN 4 MG/DL (7-18); CALCIUM LEVEL 8.6 MG/DL (8.5-10.1); CARBON DIOXIDE LEVEL 24 MEQ/L (21-32); CHLORIDE LEVEL 113 MEQ/L (98-107); CREATININE FOR GFR 0.46 MG/DL (0.55-1.30); GLOMERULAR FILTRATION RATE > 60.0 (>60); GLUCOSE, FASTING 72 MG/DL (70-100); POTASSIUM SERUM 3.5 MEQ/L (3.5-5.1); SODIUM LEVEL 143 MEQ/L (136-145); TOTAL PROTEIN 5.9 GM/DL (6.4-8.2)
[2018-10-20] MEDS: BUDESONIDE EC 3 MG CAP (ENTOCORT EC) PO SCH (09:18)
[2018-10-20] MEDS: MIRALAX *UNIT DOSE* 17GM PACKET PO SCH (09:18)
[2018-10-20 10:00] VITALS: BP 106/65
--- NOTE | 2018-10-20 10:48 | REP ---
Right upper quadrant sonography: History: Nausea, abdominal pain, poor disease. Rule out gallbladder disease. AMI January 06, 2019. Comparison study: Comparison CT study February 25 2018. Comparison MRI exam October 18, 2018 Findings: Scanning through the right upper quadrant of the abdomen demonstrates a normal sized, thin-walled gallbladder without evidence of stone or polyp. Common bile duct is normal measuring 0.6 cm in greatest diameter. No focal liver lesion is seen. Liver size is normal. No pancreatic abnormality is observed. No right renal abnormality is seen. There is no evidence of ascites. The right kidney measures 12.6 x 5.0 x 4.9 cm. heart rate is recorded at 143 beats per minute during examination. Impression: Negative right upper quadrant sonography. Electronically Signed by Sher White MD 10/20/2018 10:39 A
[2018-10-20 14:00] VITALS: BP 94/51
--- NOTE | 2018-10-20 16:02 | NUR ---
Progress note S: Pain improved this morning ,but had an exacerbation last night O: BP=94/51 P=70 AF NAD Abd: soft, moderately tender, no rebound, gravid ext: NT A/P 32 yo at 29 weeks gestation with Crohn's disease, acute exacerbation Continue Pentasa and Solumedrol Appreciate GI consult, Dr. Kris Morris MD
--- NOTE | 2018-10-20 17:50 | IPN ---
DATE: 10/20/2018 Shauna was doing quite well yesterday and yesterday evening, however, this morning had a little bit of a setback with some additional abdominal pain and some nausea, which has actually mostly subsided by the time of my visit this morning. She has not had any fevers or chills. At present no further nausea or vomiting. She has had a normal bowel movement after starting her MiraLax yesterday. Her lab work this morning is relatively unremarkable. Her white cell count is down into normal range. Her hemoglobin is slightly diminished. She has not eaten her breakfast yet. She is complaining of diminished appetite. PHYSICAL EXAMINATION: Temperature 98.6, pulse is 70, respiratory rate is 16, blood pressure 94/51, pulse oximetry 99% on room air. She is awake, alert, and oriented times three, nontoxic in appearance. Chest is clear. Heart is regular rate and rhythm, S1, S2. Abdomen is soft, mildly tender in right upper quadrant and right flank area. No rebound. Abdomen is gravid. LABORATORY WORK: Hemoglobin 8.0, hematocrit 25.7, WBC 7.4, platelet count is 229. BUN 4, creatinine 0.4, albumin 1.8. IMAGING STUDIES: Liver ultrasound: Normal size. Thin-walled gallbladder without evidence of stone or polyp. Common bile duct is normal, measuring 0.6 cm in greatest diameter. No focal liver lesion is seen. Liver size is normal. No pancreatic abnormalities observed. No right renal abnormality is seen. There is no evidence of ascites. IMPRESSION: Moderate Crohn's ileitis with abdominal pain and nausea. RECOMMENDATIONS: 1. As discussed with her yesterday, I will discontinue Pentasa, as there is no real role of 5-ASA products in Crohn's disease. 2. I would continue her intravenous (IV) Solu-Medrol. 3. She will be starting her budesonide this morning at 9 mg. 4. Continue low-residue diet.
[2018-10-20 17:54] VITALS: BP 96/51
[2018-10-20 22:30] VITALS: BP 93/53
[2018-10-21] MEDS: LR 1,000 ML IV SCH (01:58)
[2018-10-21 02:04] VITALS: BP 99/53
[2018-10-21] MEDS: methylPREDNISolone INJ 40 MG/1 ML VIAL (J2920) IV SCH ×2 (06:14→19:15)
--- NOTE | 2018-10-21 07:37 | NUR ---
Progress note S: Still has intermittent pains O: BP=99/53 P=63 NAD Abd: mild tenderness, ND, gravid ext: NT A/P 32 yo at 29+ weeks with Crohn's disease On Budesonide and Solumol Change IVF's to include potassium check labs today Junior Morris MD
[2018-10-21 07:43] LABS: HEMATOCRIT 29.8 % (36.0-47.0); HEMOGLOBIN 9.3 g/dl (12.0-15.5); MEAN CORPUSCULAR HEMOGLOBIN 25.8 pg (27.0-33.0); MEAN CORPUSCULAR HGB CONC 31.2 g/dl (32.0-36.5); MEAN CORPUSCULAR VOLUME 82.5 fl (80.0-96.0); PLATELET COUNT, AUTOMATED 259 10^3/uL (150-450); RED BLOOD COUNT 3.61 10^6/uL (4.00-5.40); WHITE BLOOD COUNT 9.5 10^3/uL (4.0-10.0)
[2018-10-21 08:08] LABS: ALBUMIN 1.9 GM/DL (3.2-5.2); ALT/SGPT 27 U/L (12-78); BILIRUBIN,TOTAL 0.2 MG/DL (0.2-1.0); BLOOD UREA NITROGEN 5 MG/DL (7-18); CARBON DIOXIDE LEVEL 23 MEQ/L (21-32); CHLORIDE LEVEL 109 MEQ/L (98-107); CREATININE FOR GFR 0.48 MG/DL (0.55-1.30); GLOMERULAR FILTRATION RATE > 60.0 (>60); GLUCOSE, FASTING 89 MG/DL (70-100); POTASSIUM SERUM 3.7 MEQ/L (3.5-5.1); SODIUM LEVEL 141 MEQ/L (136-145); TOTAL PROTEIN 6.3 GM/DL (6.4-8.2)
[2018-10-21] MEDS: BUDESONIDE EC 3 MG CAP (ENTOCORT EC) PO SCH (08:28)
[2018-10-21] MEDS: KCL 20MEQ IN D5/0.45NS 1000ML 1,000 ML IV SCH ×2 (08:28→17:02)
[2018-10-21] MEDS: MIRALAX *UNIT DOSE* 17GM PACKET PO SCH (08:28)
[2018-10-21 11:50] VITALS: BP 111/55
[2018-10-21 14:31] VITALS: BP 95/52
[2018-10-21 17:58] VITALS: BP 108/63
--- NOTE | 2018-10-21 19:08 | IPN ---
DATE: 10/21/2018 The patient has not had any further abdominal pain since approximately 3:00 a.m. this morning. She has not had any further fevers or chills. Her breakfast meal was uneventful although she did not eat much out of fear of stirring up abdominal pain. She has not had any further nausea or vomiting. Her vital signs: Temperature 98.1, pulse 71, respiratory rate is 18, blood pressure 108/63. Chest is clear bilaterally. Heart is regular rate and rhythm, S1, S2. No murmurs or gallops. Abdomen is soft, minimally tender on deep palpation in the right upper quadrant, right mid abdomen. There is no rebound tenderness or any masses felt. LABORATORY WORK: Hemoglobin 9.3, hematocrit 29.8, platelet count is 259. BUN 5, creatinine 0.48, albumin is 1.9. CURRENT MEDICATIONS: - budesonide 9 mg by mouth every morning, status post two doses - Solu-Medrol 40 mg IV every 12 hours, status post a total of six doses - MiraLAX one packet by mouth daily - acetaminophen as needed IMPRESSION: Moderate Crohn's ileitis in a 29-week female with abdominal pain and nausea. After four days of Solu-Medrol and two days of Entocort, her abdominal pain has significantly improved. Her last episode of pain was quite mild and it was at 3:00 a.m. this morning. The patient's appetite is not the best at this time but she is able to keep food down without creating abdominal pain. She has no further nausea at this time. RECOMMENDATIONS: 1. From my standpoint, I think I would discharge her on Entocort/budesonide 9 mg daily and one dose of MiraLAX. Her Solu-Medrol can be stopped after her last dose today which is scheduled at 7:00 o'clock. After which, the patient can go home. Her course of Solu-Medrol was very short and will require no tapering. 2. I will arrange for her to follow me up in the office in approximately 1-2 weeks.
--- NOTE | 2018-10-21 19:27 | DS.PDOC ---
Discharge Summary General Date of Admission Oct 18, 2018 at 16:31 Date of Discharge October 21, 2018 Discharge Summary PROCEDURES PERFORMED DURING STAY: None. ADMITTING DIAGNOSES: 1. Intrauterine @ 31 wks 2. Crohn's exacerbation DISCHARGE DIAGNOSES: 1. IUP @ 31 wks 2. Crohn's disease COMPLICATIONS/CHIEF COMPLAINT: Crohn's Disease. HISTORY OF PRESENT ILLNESS: 32yo AMI 01/06/19. Admitted at 31wks gestation with Crohn's exacerbation. HOSPITAL COURSE: Consultation and care with Dr Ponce. status has remained reassuring. She has received solumedrol IV, discontinued the Pentasa and started Budesonide daily. She is now tolerating a low residue diet in small amounts and reports a general improvement in her pain status and symptoms. DISCHARGE MEDICATIONS: Please see below. ALLERGIES: Please see below. PHYSICAL EXAMINATION ON DISCHARGE: VITAL SIGNS: Please see below. GENERAL: Alert, NAD HEENT: WNL NECK: Supple CARDIOVASCULAR EXAMINATION: Normotensive, HRR RESPIRATORY EXAMINATION: Clear and unlabored ABDOMINAL EXAMINATION: Gravid, appropriate for gestation. Mild tenderness EXTREMITIES: Equal strength and ROM SKIN: Intact NEUROLOGICAL EXAMINATION: Intact PSYCHIATRIC EXAMINATION: Appropriate LABORATORY DATA: Please see below. PROGNOSIS: Good ACTIVITY: As tolerated. Out of work till cleared by Dr Ponce DIET: Low residue as tolerated DISCHARGE PLAN: Medications as ordered. DISPOSITION: Home. DISCHARGE INSTRUCTIONS: 1. Call [facility] with related concerns - signs or labor, decreased movements. Appt next Wednesday 2. Contact Dr Ponce's office with exacerbation of Crohn's. Appt 1 week DISCHARGE CONDITION: Stable Vital Signs/I&Os Vital Signs Date Time Temp Pulse Resp B/P (MAP) Pulse Ox O2 Delivery O2 Flow Rate FiO2 10/21/18 17:58 98.1 71 18 108/63 (78) 10/21/18 02:04 98 Laboratory Data Labs 24H Laboratory Tests 2 10/21/18 07:30: Nucleated Red Blood Cells % (auto) 0.2H, Anion Gap 9, Glomerular Filtration Rate > 60.0, Blood Urea Nitrogen 5L, Creatinine 0.48L, Sodium Level 141, Potassium Level 3.7, Chloride Level 109H, Carbon Dioxide Level 23, Calcium Level 8.0L, Aspartate Amino Transf (AST/SGOT) 34, Alanine Aminotransferase (ALT/SGPT) 27, Alkaline Phosphatase 85, Total Bilirubin 0.2, Total Protein 6.3L, Albumin 1.9L, Albumin/Globulin Ratio 0.43L CBC/BMP Laboratory Tests 10/21/18 07:30 Red Blood Count 3.61 L, Mean Corpuscular Volume 82.5, Mean Corpuscular Hemoglobin 25.8 L, Mean Corpuscular Hemoglobin Concent 31.2 L, Red Cell Distribution Width 15.8 H, Calcium Level 8.0 L, Aspartate Amino Transf (AST/SGOT) 34, Alanine Aminotransferase (ALT/SGPT) 27, Alkaline Phosphatase 85, Total Bilirubin 0.2, Total Protein 6.3 L, Albumin 1.9 L Microbiology Microbiology 10/17/18 Blood Culture - Preliminary, Resulted No Growth after 72 hours. All specime... 10/17/18 Urine Culture - Final, Complete Discharge Medications Scheduled Calcium Carb/D3/Magnesium/Zinc (Edenilson Mag Zinc-D Tablet) 1 Each Tablet, 1 TAB PO DAILY, (Reported) [tri-iron folic vit] , 1 TAB PO DAILY, (Reported) Scheduled PRN Calcium Carbonate (Antacid) 200 Mg Tab.chew, 500 MG PO PRN PRN for INDIGESTION, (Reported) Allergies Coded Allergies: ciprofloxacin (Verified Allergy, Intermediate, 10/17/18) Merlene Palacios CNM Oct 21, 2018 19:27
== END 2018-10-21 20:20 | disposition home or self-care (01) | DRG 566 ==
LOC: M LDO 17:49 → M LDI 10-18 16:31 → M OBS 10-19 20:44
PROVIDERS: ADMIT Obstetrics & Gynecology; ATTEND Obstetrics & Gynecology
DX: O99.613 Diseases of the digestive system complicating pregnancy, third trimester (principal); Z3A.29 29 weeks gestation of pregnancy; K50.018 Crohn's disease of small intestine with other complication

== ENCOUNTER → 2018-11-08 | Outpatient (CLI) | payer BC ==
[~2018-11-08] MED LIST changes: +BUDE9TAB PO; +CALC500C15 PO; +CALTAB PO; +[UNRECOGNIZED DRUG - OTHER] PO
[2018-11-08 12:17] LABS: BASO % 0.3 % (0.0-1.0); EOS # 0.1 10^3/uL (0.0-0.50); EOS % 1.1 % (0.0-3.0); HEMATOCRIT 30.4 % (36.0-47.0); HEMOGLOBIN 9.4 g/dl (12.0-15.5); LYMPH # 1.2 10^3/uL (1.5-4.5); LYMPH % 11.1 % (24.0-44.0); MEAN CORPUSCULAR HEMOGLOBIN 25.1 pg (27.0-33.0); MEAN CORPUSCULAR HGB CONC 30.9 g/dl (32.0-36.5); MEAN CORPUSCULAR VOLUME 81.3 fl (80.0-96.0); MONO % 9.2 % (0.0-5.0); NEUTROPHILS % 77.7 % (36.0-66.0); PLATELET COUNT, AUTOMATED 358 10^3/uL (150-450); RED BLOOD COUNT 3.74 10^6/uL (4.00-5.40); WHITE BLOOD COUNT 10.3 10^3/uL (4.0-10.0)
[2018-11-08 12:49] LABS: ALBUMIN 2.4 GM/DL (3.2-5.2); ALT/SGPT 12 U/L (12-78); BILIRUBIN,TOTAL 0.3 MG/DL (0.2-1.0); BLOOD UREA NITROGEN 5 MG/DL (7-18); C REACTIVE PROTEIN QUANTITATIV 5.19 MG/DL (0.00-0.30); CALCIUM LEVEL 8.9 MG/DL (8.5-10.1); CARBON DIOXIDE LEVEL 26 MEQ/L (21-32); CHLORIDE LEVEL 107 MEQ/L (98-107); CREATININE FOR GFR 0.56 MG/DL (0.55-1.30); GLOMERULAR FILTRATION RATE > 60.0 (>60); GLUCOSE, FASTING 76 MG/DL (70-100); POTASSIUM SERUM 4.1 MEQ/L (3.5-5.1); SODIUM LEVEL 138 MEQ/L (136-145); TOTAL PROTEIN 6.9 GM/DL (6.4-8.2)
[2018-11-08 12:53] LABS: ERYTHROCYTE SEDIMENTATION RATE 108 mm/hr (0-20)
[2018-11-08 12:56] LABS: VITAMIN B12 LEVEL 324 PG/ML (247-911)
== END ==
LOC: M LAB 11:29
PROVIDERS: ATTEND Internal Medicine Gastroenterology
DX: K50.018 Crohn's disease of small intestine with other complication (principal)

== ENCOUNTER → 2018-11-08 | Outpatient (REF) | payer BC ==
[~2018-11-08] MED LIST changes: -BUDE9TAB PO
[2018-11-11 00:06] LABS: ANTI PARVO VIRUS LEVEL IGG 6.4 index (0.0-0.8); ANTI PARVO VIRUS LEVEL IgM 0.2 index (0.0-0.8)
== END ==
LOC: M LAB REF 15:47
PROVIDERS: ATTEND Advanced Practice Midwife
DX: Z23 Encounter for immunization (principal)

== ENCOUNTER → 2018-11-18 | Outpatient (CLI) | payer BC ==
[~2018-11-18] MED LIST changes: +BUDE9TAB PO
--- NOTE | 2018-11-18 19:39 | REP ---
OB ULTRASOUND: Real-time sonographic evaluation of the gravid uterus is performed. There is a single living intrauterine gestation. The estimated gestational age is 33 weeks based on the LMP, EDC 01/06/2019. Today's measurements indicate appropriate growth. BPD 79 mm = 31 weeks 4 days, 29th percentile HC 280 mm = 30 weeks 5 days, 15th percentile AC 292 mm = 33 weeks 2 days, 53rd percentile Femur length 61 mm = 31 weeks 4 days, 29th percentile HC/AC ratio 0.96 within normal range. Estimated weight 1951 grams, 32nd percentile. Cervix is closed and measures 3 cm in length. heart rate 143 beats per minute. Amniotic fluid within normal limits, MATT 14.0 within normal range of 8.3-24.5. S/D ratio 2.51 and RI 0.60 within normal range. Visualized anatomy today includes upper lip, four chamber heart, ventricular out flow tracts, stomach, cord insertion, three vessel cord, kidneys, and bladder which are grossly unremarkable. position is vertex. Placenta anterior and grade 2 with no previa or abruption. Electronically Signed by Jayson Barargan MD 11/21/2018 11:31 A
== END ==
LOC: M RAD 10:47
PROVIDERS: ATTEND Advanced Practice Midwife
DX: O99.612 Diseases of the digestive system complicating pregnancy, second trimester (principal); K50.018 Crohn's disease of small intestine with other complication; Z3A.33 33 weeks gestation of pregnancy

== ENCOUNTER → 2018-12-02 | Outpatient (REF) | payer BC ==
[~2018-12-02] MED LIST changes: -BUDE9TAB PO
== END ==
LOC: M LAB REF 12:55
PROVIDERS: ATTEND Advanced Practice Midwife
DX: Z34.83 Encounter for supervision of other normal pregnancy, third trimester (principal)

== ENCOUNTER → 2018-12-13 | Outpatient (CLI) | payer BC ==
[~2018-12-13] MED LIST changes: +BUDE9TAB PO
== END ==
LOC: M LAB 14:08
PROVIDERS: ATTEND Advanced Practice Midwife
DX: Z34.83 Encounter for supervision of other normal pregnancy, third trimester (principal); Z36.89 Encounter for other specified antenatal screening

== ENCOUNTER → 2018-12-19 | Outpatient (CLI) | payer BC ==
[2018-12-19 14:17] LABS: BASO % 0.2 % (0.0-1.0); EOS % 0.4 % (0.0-3.0); HEMATOCRIT 31.2 % (36.0-47.0); HEMOGLOBIN 9.4 g/dl (12.0-15.5); LYMPH # 0.8 10^3/uL (1.5-5.0); LYMPH % 9.3 % (24.0-44.0); MEAN CORPUSCULAR HEMOGLOBIN 23.5 pg (27.0-33.0); MEAN CORPUSCULAR HGB CONC 30.1 g/dl (32.0-36.5); MONO # 0.8 10^3/uL (0.0-0.8); MONO % 9.6 % (0.0-5.0); NEUTROPHILS # 6.4 10^3/uL (1.5-8.5); NEUTROPHILS % 79.4 % (36.0-66.0); PLATELET COUNT, AUTOMATED 289 10^3/uL (150-450); WHITE BLOOD COUNT 8.1 10^3/uL (4.0-10.0)
[2018-12-19 14:18] LABS: ALBUMIN 2.4 GM/DL (3.2-5.2); ALT/SGPT 12 U/L (12-78); BILIRUBIN,TOTAL 0.3 MG/DL (0.2-1.0); BLOOD UREA NITROGEN 5 MG/DL (7-18); C REACTIVE PROTEIN QUANTITATIV 4.41 MG/DL (0.00-0.30); CALCIUM LEVEL 8.9 MG/DL (8.5-10.1); CARBON DIOXIDE LEVEL 22 MEQ/L (21-32); CHLORIDE LEVEL 107 MEQ/L (98-107); CREATININE FOR GFR 0.57 MG/DL (0.55-1.30); GLOMERULAR FILTRATION RATE > 60.0 (>60); GLUCOSE, FASTING 82 MG/DL (70-100); POTASSIUM SERUM 4.1 MEQ/L (3.5-5.1); SODIUM LEVEL 139 MEQ/L (136-145); TOTAL PROTEIN 6.6 GM/DL (6.4-8.2)
== END ==
LOC: M SMT 10:56
PROVIDERS: ATTEND Internal Medicine Gastroenterology
DX: K50.018 Crohn's disease of small intestine with other complication (principal)

== ENCOUNTER 2018-12-20 17:55 | Inpatient (IN) | payer BC ==
[2018-12-20] VITALS (10 sets, daily range): BP systolic 103–130; BP diastolic 55–75
[~2018-12-20] VITALS: Ht 167.6 cm; Wt 75.8 kg
[~2018-12-20 17:55] MED LIST changes: -BUDE9TAB PO
[2018-12-20] MEDS ORDERED: BUDE9TAB PO (18:15)
[2018-12-20] MEDS ORDERED: PENT500C PO (18:15)
[2018-12-20] MEDS ORDERED: OXYTOCIN DRIP 30 UNITS in IV 1 EA IV SCH (18:30)
[2018-12-20 19:10] LABS: HEMATOCRIT 29.8 % (36.0-47.0); HEMOGLOBIN 9.2 g/dl (12.0-15.5); MEAN CORPUSCULAR HEMOGLOBIN 23.6 pg (27.0-33.0); MEAN CORPUSCULAR HGB CONC 30.9 g/dl (32.0-36.5); MEAN CORPUSCULAR VOLUME 76.4 fl (80.0-96.0); PLATELET COUNT, AUTOMATED 264 10^3/uL (150-450); WHITE BLOOD COUNT 10.4 10^3/uL (4.0-10.0)
--- NOTE | 2018-12-20 19:38 | HPE ---
DATE OF ADMISSION: 12/20/2018 Shauna is a 33-year-old 4, para 2-0-1-2, estimated date of confinement (EDC) of 01/06/2018 based on last menstrual period and confirmed by first trimester ultrasound. She is 37-4/7 weeks gestation. She presents to labor and delivery today with report of spontaneous rupture of membranes at approximately 0330, reports the fluid as clear, denies any vaginal bleeding, denies any regular contractions. The fetus has been active. care was initiated at [facility] in the first trimester. course complicated by a history of Crohn's disease with a Crohn's exacerbation during . HISTORY: November 2013: 41-3/7 weeks, 7 pound 7 ounce female, vaginal delivery. December 2015: 6 weeks, spontaneous miscarriage. November 2016: 37-4/7 weeks, 6 pound 6 ounce female, vaginal delivery following premature rupture of membranes and induction of labor. OBSTETRIC LABS: A positive, antibody screen negative, rubella immune, VDRL nonreactive. Urine culture - no growth. Hepatitis B surface antigen negative. HIV negative. Hepatitis C antibody nonreactive. Gonorrhea and chlamydia negative. She declined genetic serum screening labs. Gestational diabetic screening normal at 106 and her GBS is negative. PAST MEDICAL HISTORY: Crohn's disease. SURGERIES: None. FAMILY HISTORY: Noncontributory. SOCIAL HISTORY: The patient is . Her is at bedside, supportive. She is a nonsmoker. Denies alcohol and drug use. No history of any sexually transmitted infections and denies history of abuse - physical, sexual and emotional. ALLERGIES: CIPRO. CURRENT MEDICATIONS: - Pentasa 500 mg by mouth twice a day - budesonide 3 mg - vitamins OBJECTIVE: Temperature 98.6, pulse 85, respirations 18, blood pressure is 130/75. She is alert and oriented times three. She is in no apparent distress. heart rate is 155, moderate variability. No accelerations. Positive occasional variable decelerations. No regular pattern of contractions. Sterile vaginal exam: Grossly ruptured, clear fluid. 3-4 cm dilated, 75% effaced, -3 station. Abdomen: Gravid, cephalic presentation. Estimated weight 7 pounds. ASSESSMENT: Intrauterine at 37-4/7 weeks. heart rate is a category 2. Premature rupture of membranes. PLAN: Admit patient to labor and delivery. Routine labs. IV fluid bolus. Out of bed ad satya. Clear liquid diet. Start IV Pitocin for labor induction. Per consult with Dr. Junior Morris, start stress dose steroids for her labor. Did review risks, benefits and alternatives. Her and her 's questions have been answered. She may consider an epidural or IV pain medications during her labor. I do anticipate an active labor and a spontaneous vaginal delivery.
[2018-12-20] MEDS: LR 1,000 ML IV SCH ×2 (20:00→20:41)
[2018-12-20] MEDS: HYDROCORTISONE 100 MG/2 ML VIAL (J1720) IV SCH (20:00)
[2018-12-20] MEDS ORDERED: MESALAMINE 250 MG CR CAP PO SCH (21:00)
[2018-12-21] VITALS (19 sets, daily range): BP systolic 102–134; BP diastolic 56–79
[2018-12-21] MEDS: HYDROCORTISONE 100 MG/2 ML VIAL (J1720) IV SCH (01:36)
[2018-12-21] MEDS ORDERED: BUTORPHANOL 2 MG/ML INJ (J0595) IV ONE (05:00)
[2018-12-21] MEDS ORDERED: PROMETHAZINE INJ 25 MG/ML VIAL (J2550) IV ONE (05:00)
[2018-12-21] MEDS ORDERED: OXYTOCIN DRIP 30 UNITS in IV 1 EA IV SCH (06:38)
[2018-12-21] MEDS ORDERED: ACETAMINOPHEN TAB 650MG DOSE (2X325MG) PO PRN (06:45)
[2018-12-21] MEDS ORDERED: ANUSOL HC CREAM 30GM TOP PRN (06:45)
[2018-12-21] MEDS ORDERED: LIDOCAINE 1% MDV 20ML VIAL INFIL ONE (06:45)
[2018-12-21] MEDS ORDERED: IBUPROFEN 600 MG TAB PO PRN (06:45)
[2018-12-21] MEDS ORDERED: RHOGAM 300 MCG (1500 IU) INJ (J2790) IM SCH (06:45)
[2018-12-21] MEDS ORDERED: ONDANSETRON 4MG/2ML VIAL (J2405) IV PRN (06:45)
[2018-12-21] MEDS ORDERED: IBUPROFEN 800 MG TAB PO PRN (06:45)
[2018-12-21] MEDS ORDERED: DOCUSATE SODIUM 100 MG CAP PO PRN (06:45)
[2018-12-21] MEDS ORDERED: METHYLERGONOVINE MALEATE 0.2 MG TAB PO PRN (06:45)
[2018-12-21] MEDS ORDERED: DIBUCAINE 1% OINTMENT 30GM TOP PRN (06:45)
[2018-12-21] MEDS ORDERED: ACETAMINOPHEN 500 MG TAB PO PRN (06:45)
--- NOTE | 2018-12-21 07:13 | DN ---
DATE OF DELIVERY: 12/21/2018 Shauna is a 33-year-old, 4, para 3-0-1-3 now, admitted to labor and delivery with premature rupture of membranes. IV Pitocin was started and labor did ensue. She coped with her labor physiologically and with IV pain medications. She did reach full dilation at 0606. She pushed to a normal spontaneous vaginal delivery of a live female in occiput anterior (OA) position with restitution to right occiput transverse (ROT) position at 0610. There was no nuchal cord. The shoulders delivered with gentle downward traction and the corpus followed. The female was placed on the maternal abdomen crying and active. Mouth and nares were bulb suctioned. The cord was clamped times two once pulsations ceased and cut by the father of the baby under my direction. Spontaneous expulsion of an intact placenta with three-vessel cord by Dolan mechanism was at 0613. Uterine hemostasis achieved with IV Pitocin rapid infusion and uterine fundal massage. Estimated blood loss 250 mL. Perineum and vagina inspected and noted to have a first-degree perineal laceration. The laceration was infiltrated with 1% lidocaine and repaired with #3-0 Rapide in the usual fashion. female weight 7lb 1oz, is 9 and 9. Mom is going to breastfeed her daughter and the family have named her Sally Bajwa. At the close of delivery, lap counts, needle counts and instrument counts were correct and verified. [facility]
[2018-12-21] MEDS ORDERED: MESALAMINE 250 MG CR CAP PO SCH (09:00)
[2018-12-21] MEDS ORDERED: BUDESONIDE EC 3 MG CAP (ENTOCORT EC) PO SCH (09:00)
[2018-12-21] MEDS: PRENATAL VITAMINS CHEWABLE TABLET PO SCH (09:59)
[2018-12-21] MEDS: PENTASA 500 MG PO SCH (21:00)
[2018-12-22 06:02] VITALS: BP 90/50
[2018-12-22] MEDS: PENTASA 500 MG PO SCH (08:16)
[2018-12-22] MEDS ORDERED: BUDESONIDE 3 MG PO SCH (09:00)
[2018-12-22] MEDS: PRENATAL VITAMINS CHEWABLE TABLET PO SCH (09:00)
== END 2018-12-22 16:20 | disposition home or self-care (01) | DRG 560 ==
LOC: M LDI 17:55 → M PED 12-21 14:02
PROVIDERS: ADMIT Advanced Practice Midwife; ATTEND Advanced Practice Midwife
PROC: 10E0XZZ Delivery of Products of Conception, External Approach (ICD-10-PCS; principal; 2018-12-21)
PROC: 0HQ9XZZ Repair Perineum Skin, External Approach (ICD-10-PCS; 2018-12-21)
DX: O42.02 Full-term premature rupture of membranes, onset of labor within 24 hours of rupture (principal); Z3A.37 37 weeks gestation of pregnancy; Z37.0 Single live birth; O76 Abnormality in fetal heart rate and rhythm complicating labor and delivery; O70.0 First degree perineal laceration during delivery

== ENCOUNTER 2019-04-18 07:41 | Day surgery (SDC) | payer BC ==
[~2019-04-18] VITALS: Ht 167.6 cm; Wt 64.0 kg
[~2019-04-18 07:41] MED LIST changes: +BUDE9TAB PO; +SIMETHICONE 40MG/0.6ML DROPS 30ML As Ordered ONE
[2019-04-18] MEDS ORDERED: LIDOCAINE 2% INJ 100 MG/5 ML SDV (FOR ANES.) As Ordered ONE (07:47)
[2019-04-18] MEDS ORDERED: PROPOFOL 200 MG/20 ML VIAL As Ordered ONE (07:47)
[2019-04-18] MEDS ORDERED: NS 1,000 ML IV ONE (08:15)
--- NOTE | 2019-04-18 09:02 | ROOR ---
Patient Name: Shauna Gama Procedure Date: 04/18/2019 8:34 AM Date of : 1985 Age: 33 Room: [facility] Gender: Female Note Status: Finalized Procedure: Colonoscopy Indications: Follow-up of Crohn's disease of the small bowel, Disease activity assessment of Crohn's disease of the small bowel Providers: Smith PONCE MD Referring MD: 1. No Referring Physician 1. No Referring Physician, Admin., Smith PONCE MD Requesting Provider: Medicines: Monitored Anesthesia Care Complications: No immediate complications. Procedure: Pre-Anesthesia Assessment: - The heart rate, respiratory rate, oxygen saturations, blood pressure, adequacy of pulmonary ventilation, and response to care were monitored throughout the procedure. The Colonoscope was introduced through the anus and advanced to 8 cm into the ileum. The colonoscopy was performed without difficulty. The patient tolerated the procedure well. The quality of the bowel preparation was good. Findings: The perianal and digital rectal examinations were normal. Inflammation characterized by serpentine ulcerations and shallow ulcerations was found. This was moderate in severity. Biopsies were taken with a cold forceps for histology. The distal ileum contained a moderate stenosis. The colon (entire examined portion) appeared normal. Internal hemorrhoids were found during retroflexion. Impression: - Crohn's disease with ileitis with multiple shallow ulcerations and moderate stenosis. Biopsied. - Stricture in the distal ileum. - The entire examined colon is normal. - Internal hemorrhoids. Recommendation: - Return to my office in 2 weeks. Smith Ponce MD Smith PONCE MD 04/18/2019 9:01:41 AM Electronically signed by Smith PONCE MD Number of Addenda: 0 Note Initiated On: 04/18/2019 8:34 AM Estimated Blood Loss: Estimated blood loss: none.
[2019-04-18 09:24] VITALS: BP 112/75
== END 2019-04-18 09:27 | disposition home or self-care (01) ==
LOC: M OPP 07:41
PROVIDERS: ATTEND Internal Medicine Gastroenterology
DX: K64.8 Other hemorrhoids (principal); K50.012 Crohn's disease of small intestine with intestinal obstruction; Z88.1 Allergy status to other antibiotic agents; Z79.899 Other long term (current) drug therapy; Z87.891 Personal history of nicotine dependence

== ENCOUNTER → 2020-02-27 | Outpatient (CLI) | payer SELFPAY ==
[~2020-02-27] MED LIST changes: -SIMETHICONE 40MG/0.6ML DROPS 30ML As Ordered ONE
== END ==
LOC: M LABSMTC 11:41
PROVIDERS: ATTEND Pediatrics
DX: Z20.828 Contact with and (suspected) exposure to other viral communicable diseases (principal)

== ENCOUNTER → 2020-12-06 | Outpatient (REF) | LOC: M EMP 14:49 | PROVIDERS: ATTEND Family Medicine | DX: Z20.828 Contact with and (suspected) exposure to other viral communicable diseases (principal); Z11.59 Encounter for screening for other viral diseases ==

== ENCOUNTER → 2021-10-01 | Outpatient (CLI) | payer OTHER | LOC: M WHC 07:39 | PROVIDERS: ATTEND Advanced Practice Midwife | DX: K82.4 Cholesterolosis of gallbladder (principal); K50.90 Crohn's disease, unspecified, without complications; R10.2 Pelvic and perineal pain; R19.03 Right lower quadrant abdominal swelling, mass and lump ==

== ENCOUNTER → 2021-11-25 | Outpatient (REF) | payer OTHER | LOC: M SFHCWAGY 16:55 | PROVIDERS: ATTEND Advanced Practice Midwife | DX: Z12.4 Encounter for screening for malignant neoplasm of cervix (principal) | CPT/HCPCS: 87624; G0123 ==

== ENCOUNTER → 2021-12-03 | Outpatient (REF) | payer OTHER | LOC: M PLALAB 09:22 | PROVIDERS: ATTEND Advanced Practice Midwife | DX: Z12.4 Encounter for screening for malignant neoplasm of cervix (principal) ==

== ENCOUNTER → 2022-04-28 | Outpatient (CLI) | payer OTHER ==
[2022-04-28 15:26] LABS: HEMATOCRIT 34.1 % (36.0-47.0); HEMOGLOBIN 10.8 g/dl (12.0-15.5); MEAN CORPUSCULAR HEMOGLOBIN 25.5 pg (27.0-33.0); MEAN CORPUSCULAR HGB CONC 31.7 g/dl (32.0-36.5); MEAN CORPUSCULAR VOLUME 80.4 fl (80.0-96.0); PLATELET COUNT, AUTOMATED 317 10^3/uL (150-450); RED BLOOD COUNT 4.24 10^6/uL (4.00-5.40); WHITE BLOOD COUNT 7.1 10^3/uL (4.0-10.0)
[2022-04-28 16:01] LABS: HIV 1&2 SCREEN CENTAUR NEGATIVE (NEGATIVE)
[2022-04-28 16:10] LABS: HEPATITIS C VIRUS ABY INDEX 0.1 INDEX (<0.8)
[2022-04-28 17:09] LABS: GC DNA AMPLIFICATION NEGATIVE (NEGATIVE)
== END ==
LOC: M PLALAB 12:05
PROVIDERS: ATTEND Advanced Practice Midwife
DX: Z34.91 Encounter for supervision of normal pregnancy, unspecified, first trimester (principal); Z3A.00 Weeks of gestation of pregnancy not specified

== ENCOUNTER → 2022-06-29 | Outpatient (CLI) | payer OTHER | LOC: M RAD 12:09 | PROVIDERS: ATTEND Advanced Practice Midwife | DX: Z34.92 Encounter for supervision of normal pregnancy, unspecified, second trimester (principal); Z3A.21 21 weeks gestation of pregnancy ==

== ENCOUNTER → 2022-08-11 | Outpatient (CLI) | payer OTHER ==
[2022-08-11 14:03] LABS: HEMATOCRIT 35.4 % (36.0-47.0); HEMOGLOBIN 10.8 g/dl (12.0-15.5); MEAN CORPUSCULAR HEMOGLOBIN 26.4 pg (27.0-33.0); MEAN CORPUSCULAR HGB CONC 30.5 g/dl (32.0-36.5); MEAN CORPUSCULAR VOLUME 86.6 fl (80.0-96.0); PLATELET COUNT, AUTOMATED 354 10^3/uL (150-450); RED BLOOD COUNT 4.09 10^6/uL (4.00-5.40); WHITE BLOOD COUNT 12.6 10^3/uL (4.0-10.0)
== END ==
LOC: M LAB 11:36
PROVIDERS: ATTEND Advanced Practice Midwife
DX: Z34.92 Encounter for supervision of normal pregnancy, unspecified, second trimester (principal)

== ENCOUNTER → 2022-09-16 | Outpatient (CLI) | payer OTHER | LOC: M RAD 11:08 | PROVIDERS: ATTEND Advanced Practice Midwife | DX: O09.523 Supervision of elderly multigravida, third trimester (principal); K52.9 Noninfective gastroenteritis and colitis, unspecified; Z3A.32 32 weeks gestation of pregnancy ==

== ENCOUNTER → 2022-10-06 | Outpatient (REF) | payer OTHER | LOC: M SFHCWAGY 17:34 | PROVIDERS: ATTEND Advanced Practice Midwife | DX: Z36.85 Encounter for antenatal screening for Streptococcus B (principal) ==

== ENCOUNTER → 2022-10-20 | Outpatient (CLI) | payer OTHER | LOC: M RAD 11:18 | PROVIDERS: ATTEND Advanced Practice Midwife | DX: D89.89 Other specified disorders involving the immune mechanism, not elsewhere classified (principal); Z34.93 Encounter for supervision of normal pregnancy, unspecified, third trimester ==

== ENCOUNTER 2022-11-16 10:37 | Inpatient (IN) | payer OTHER ==
[2022-11-16] VITALS (10 sets, daily range): BP systolic 104–130; BP diastolic 57–79
[~2022-11-16] VITALS: Ht 167.6 cm; Wt 84.5 kg
[2022-11-16] MEDS ORDERED: HOME MED LIST COMPLETE! XX SCH (10:50)
[2022-11-16] MEDS ORDERED: OXYTOCIN DRIP 30 UNITS in IV 1 EA IV PRN ×4 (11:35)
[2022-11-16] MEDS ORDERED: OXYTOCIN INJ 10UNITS/ML 1ML VIAL IM PRN (11:35)
[2022-11-16] MEDS ORDERED: PENICILLIN G POTASSIUM 5 MU IV 5 MU in D5W MINI-BAG PLUS 100 ML IV STA ×2 (11:35→11:56)
[2022-11-16] MEDS ORDERED: LIDOCAINE 1% MDV 20ML VIAL INFIL PRN (11:35)
[2022-11-16] MEDS ORDERED: METHYLERGONOVINE MALEATE 0.2MG/ML 1ML VIAL IM PRN (11:35)
[2022-11-16] MEDS ORDERED: TRANEXAMIC ACID INJection 1,000 MG in NS 100 ML IV PRN (11:35)
[2022-11-16] MEDS ORDERED: CARBOPROST TROMETHAMINE 250 MCG/ML AMP IM PRN (11:35)
[2022-11-16] MEDS: miSOPROStol 50MCG 1/2 TABLET PO SCH ×3 (12:11→20:57)
[2022-11-16 12:22] LABS: HEMATOCRIT 32.6 % (36.0-47.0); HEMOGLOBIN 10.3 g/dl (12.0-15.5); MEAN CORPUSCULAR HGB CONC 31.6 g/dl (32.0-36.5); MEAN CORPUSCULAR VOLUME 82.3 fl (80.0-96.0); PLATELET COUNT, AUTOMATED 311 10^3/uL (150-450); RED BLOOD COUNT 3.96 10^6/uL (4.00-5.40); WHITE BLOOD COUNT 9.2 10^3/uL (4.0-10.0)
[2022-11-16] MEDS ORDERED: PEN G POT 3,000,000 UNIT/50 ML 3,000,000 UNIT in IV 1 EA IV SCH (15:35)
[2022-11-16] MEDS: PEN G POT 3,000,000 UNIT/50 ML 3,000,000 UNIT in IV 1 EA IV SCH ×2 (16:16→20:07)
[2022-11-17] VITALS (9 sets, daily range): BP systolic 88–142; BP diastolic 46–70; O2SAT 98
[2022-11-17] MEDS: miSOPROStol 50MCG 1/2 TABLET PO SCH (00:18)
[2022-11-17] MEDS: PEN G POT 3,000,000 UNIT/50 ML 3,000,000 UNIT in IV 1 EA IV SCH ×2 (00:18→04:41)
[2022-11-17] MEDS ORDERED: PROMETHAZINE 25MG/ML 1ML VIAL IV ONE (04:20)
[2022-11-17] MEDS ORDERED: MORPHINE 10 MG/ML 1ML VIAL IV ONE (04:20)
[2022-11-17] MEDS ORDERED: LR 1,000 ML IV SCH (04:35)
[2022-11-17] MEDS ORDERED: OXYTOCIN 30UNITS IN 0.9% NaCl 500ML IV BAG As Ordered ONE (05:08)
[2022-11-17] MEDS ORDERED: DIBUCAINE 1% OINTMENT 30GM TOP PRN (06:55)
[2022-11-17] MEDS ORDERED: OXYTOCIN DRIP 30 UNITS in IV 1 EA IV SCH (06:55)
[2022-11-17] MEDS ORDERED: DOCUSATE SODIUM 100MG CAPSULE PO PRN (06:55)
[2022-11-17] MEDS ORDERED: ACETAMINOPHEN 500 MG TAB PO PRN (06:55)
[2022-11-17] MEDS ORDERED: ACETAMINOPHEN TAB 650MG DOSE (2X325MG) PO PRN (06:55)
[2022-11-17] MEDS ORDERED: IBUPROFEN 800 MG TAB PO PRN (06:55)
[2022-11-17] MEDS ORDERED: METHYLERGONOVINE MALEATE 0.2 MG TAB PO PRN (06:55)
[2022-11-17] MEDS ORDERED: RHOGAM 300MCG (1500IU) INJ IM SCH (06:55)
[2022-11-17] MEDS: PRENATAL VITAMINS CHEWABLE TABLET PO SCH (07:51)
[2022-11-17] MEDS: IBUPROFEN 600MG TAB PO PRN ×2 (14:11→23:35)
[2022-11-18 06:00] VITALS: BP 114/59; O2SAT 96
[2022-11-18] MEDS: PRENATAL VITAMINS CHEWABLE TABLET PO SCH (09:34)
[2022-11-19] MEDS ORDERED: MEASLES,MUMPS,RUBELLA VACCINE INJ (MMR-II) SC.IMMUN ONE (09:00)
== END 2022-11-18 17:35 | disposition home or self-care (01) | DRG 560 ==
LOC: M LDI 10:37 → M OBS 11-17 07:05
PROVIDERS: ADMIT Advanced Practice Midwife; ATTEND Advanced Practice Midwife
PROC: 3E0P7VZ Introduction of Hormone into Female Reproductive, Via Natural or Artificial Opening (ICD-10-PCS; 2022-11-16)
PROC: 10E0XZZ Delivery of Products of Conception, External Approach (ICD-10-PCS; principal; 2022-11-17)
DX: O48.0 Post-term pregnancy (principal); Z37.0 Single live birth; Z3A.41 41 weeks gestation of pregnancy; O09.523 Supervision of elderly multigravida, third trimester

== ENCOUNTER → 2022-12-19 | Outpatient (REF) | payer OTHER ==
[2022-12-20 11:06] LABS: CLOSTRIDIUM DIFFICILE PCR NEGATIVE (NEGATIVE)
== END ==
LOC: M LAB REF 20:19
PROVIDERS: ATTEND Advanced Practice Midwife
DX: K50.90 Crohn's disease, unspecified, without complications (principal); R19.7 Diarrhea, unspecified

== ENCOUNTER → 2023-10-15 | Outpatient (CLI) | payer OTHER ==
[~2023-10-15] MED LIST changes: -BUDE9TAB PO; +BUDE9TAB4 PO
[2023-10-15 13:57] LABS: HEMATOCRIT 35.1 % (36.0-47.0); HEMOGLOBIN 10.9 g/dl (12.0-15.5); MEAN CORPUSCULAR HEMOGLOBIN 25.8 pg (27.0-33.0); MEAN CORPUSCULAR HGB CONC 31.1 g/dl (32.0-36.5); PLATELET COUNT, AUTOMATED 363 10^3/uL (150-450); RED BLOOD COUNT 4.23 10^6/uL (4.00-5.40); WHITE BLOOD COUNT 7.9 10^3/uL (4.0-10.0)
[2023-10-15 14:02] LABS: ERYTHROCYTE SEDIMENTATION RATE 31 mm/hr (0-20)
[2023-10-15 14:16] LABS: ALBUMIN 3.3 G/DL (3.2-5.2); ALKALINE PHOSPHATASE 98 U/L (46-116); ALT/SGPT 24 U/L (7.0-40); AST/SGOT 13 U/L (<34); BILIRUBIN,TOTAL 0.4 MG/DL (0.3-1.2); BLOOD UREA NITROGEN 11 MG/DL (9-23); CALCIUM LEVEL 9.1 MG/DL (8.5-10.1); CARBON DIOXIDE LEVEL 28 MMOL/L (20-31); CHLORIDE LEVEL 108 MMOL/L (98-107); CREATININE FOR GFR 0.66 MG/DL (0.55-1.30); GLOMERULAR FILTRATION RATE > 60.0 (>60); GLUCOSE, FASTING 99 MG/DL (60-100); POTASSIUM SERUM 4.2 MMOL/L (3.5-5.1); SODIUM LEVEL 140 MMOL/L (136-145); TOTAL PROTEIN 6.7 G/DL (5.7-8.2)
== END ==
LOC: M LAB 12:56
PROVIDERS: ATTEND Physician Assistant
DX: K50.90 Crohn's disease, unspecified, without complications (principal)

== ENCOUNTER → 2024-04-27 | Outpatient (CLI) | payer OTHER ==
[2024-04-27 14:22] LABS: HEMATOCRIT 34.4 % (36.0-47.0); HEMOGLOBIN 10.7 g/dl (12.0-15.5); MEAN CORPUSCULAR HEMOGLOBIN 24.5 pg (27.0-33.0); MEAN CORPUSCULAR HGB CONC 31.1 g/dl (32.0-36.5); MEAN CORPUSCULAR VOLUME 78.9 fl (80.0-96.0); PLATELET COUNT, AUTOMATED 396 10^3/uL (150-450); RED BLOOD COUNT 4.36 10^6/uL (4.00-5.40); WHITE BLOOD COUNT 9.6 10^3/uL (4.0-10.0)
[2024-04-27 14:36] LABS: ERYTHROCYTE SEDIMENTATION RATE 43 mm/hr (0-20)
[2024-04-27 14:45] LABS: ALKALINE PHOSPHATASE 66 U/L (35-104); ALT/SGPT 12 U/L (7.0-40); AST/SGOT 12 U/L (<34); BILIRUBIN,TOTAL 0.3 MG/DL (0.3-1.2); BLOOD UREA NITROGEN 10 MG/DL (9-23); C REACTIVE PROTEIN QUANTITATIV 2.02 MG/DL (<1.0); CALCIUM LEVEL 8.5 MG/DL (8.5-10.1); CARBON DIOXIDE LEVEL 28 MMOL/L (20-31); CHLORIDE LEVEL 108 MMOL/L (98-107); CREATININE FOR GFR 0.66 MG/DL (0.55-1.30); GLOMERULAR FILTRATION RATE > 60.0 (>60); GLUCOSE, FASTING 89 MG/DL (60-100); POTASSIUM SERUM 4.3 MMOL/L (3.5-5.1); SODIUM LEVEL 143 MMOL/L (136-145); TOTAL PROTEIN 6.5 G/DL (5.7-8.2)
== END ==
LOC: M LAB 13:10
PROVIDERS: ATTEND Internal Medicine Gastroenterology
DX: K50.90 Crohn's disease, unspecified, without complications (principal); K52.9 Noninfective gastroenteritis and colitis, unspecified

== ENCOUNTER → 2024-04-28 | Outpatient (REF) | payer OTHER | LOC: M LAB REF 13:16 | PROVIDERS: ATTEND Internal Medicine Gastroenterology | DX: K50.90 Crohn's disease, unspecified, without complications (principal); K52.9 Noninfective gastroenteritis and colitis, unspecified ==

== ENCOUNTER → 2024-11-21 | Outpatient (CLI) | payer OTHER ==
[2024-11-21 11:56] LABS: PLATELET COUNT, AUTOMATED 500 10^3/uL (150-450)
[2024-11-21 12:01] LABS: ERYTHROCYTE SEDIMENTATION RATE 108 mm/hr (0-20)
[2024-11-21 12:35] LABS: ALT/SGPT 12 U/L (7.0-40); AST/SGOT 12 U/L (<34); CALCIUM LEVEL 9.1 MG/DL (8.5-10.1); CARBON DIOXIDE LEVEL 25 MMOL/L (20-31); CHLORIDE LEVEL 104 MMOL/L (98-107); CREATININE FOR GFR 0.74 MG/DL (0.55-1.30); GLOMERULAR FILTRATION RATE > 90.0 (>60); POTASSIUM SERUM 4.1 MMOL/L (3.5-5.1); SODIUM LEVEL 141 MMOL/L (136-145)
[2024-11-21 12:48] LABS: C REACTIVE PROTEIN QUANTITATIV 13.48 MG/DL (<1.0)
== END ==
LOC: M LAB 11-20 16:34
PROVIDERS: ATTEND Internal Medicine Gastroenterology
DX: K50.90 Crohn's disease, unspecified, without complications (principal); D50.9 Iron deficiency anemia, unspecified

== ENCOUNTER → 2024-11-28 | Outpatient (CLI) | payer OTHER ==
[~2024-11-28] MED LIST changes: +ISOVUE-370 76% 100 ML VIAL As Ordered ONE
== END ==
LOC: M RAD 10:30
PROVIDERS: ATTEND Internal Medicine Gastroenterology
DX: K50.90 Crohn's disease, unspecified, without complications (principal); R79.82 Elevated C-reactive protein (CRP); R19.5 Other fecal abnormalities
CPT/HCPCS: 74177; Q9967

== ENCOUNTER → 2024-12-21 | Outpatient (REF) | payer OTHER ==
[~2024-12-21] MED LIST changes: -ISOVUE-370 76% 100 ML VIAL As Ordered ONE
[2024-12-23 13:57] LABS: HPV APTIMA Not Detected (Not Detected)
== END ==
LOC: M SFHCWAGY 15:10
PROVIDERS: ATTEND Physician Assistant
DX: R10.2 Pelvic and perineal pain (principal)
CPT/HCPCS: 87070; 87077; 87186; 87624; G0123

== ENCOUNTER → 2024-12-21 | Outpatient (CLI) | payer OTHER ==
[~2024-12-21] MED LIST changes: +ISOVUE-370 76% 100 ML VIAL ONE
== END ==
LOC: M PLAIMG 15:02
PROVIDERS: ATTEND Internal Medicine Gastroenterology
DX: K50.014 Crohn's disease of small intestine with abscess (principal); K50.90 Crohn's disease, unspecified, without complications
CPT/HCPCS: 74177; Q9967

== ENCOUNTER → 2024-12-21 | Outpatient (CLI) | payer OTHER ==
[~2024-12-21] MED LIST changes: -ISOVUE-370 76% 100 ML VIAL ONE
[2024-12-21 16:01] LABS: PLATELET COUNT, AUTOMATED 396 10^3/uL (150-450)
[2024-12-21 16:07] LABS: ERYTHROCYTE SEDIMENTATION RATE 90 mm/hr (0-20)
[2024-12-21 16:30] LABS: ALT/SGPT 13 U/L (7.0-40); AST/SGOT 11 U/L (<34); C REACTIVE PROTEIN QUANTITATIV 7.34 MG/DL (<1.0); CALCIUM LEVEL 9.1 MG/DL (8.5-10.1); CARBON DIOXIDE LEVEL 27 MMOL/L (20-31); CHLORIDE LEVEL 102 MMOL/L (98-107); CREATININE FOR GFR 0.70 MG/DL (0.55-1.30); GLOMERULAR FILTRATION RATE > 90.0 (>60); POTASSIUM SERUM 4.1 MMOL/L (3.5-5.1); SODIUM LEVEL 140 MMOL/L (136-145)
== END ==
LOC: M PLALAB 13:51
PROVIDERS: ATTEND Internal Medicine Gastroenterology
DX: K50.014 Crohn's disease of small intestine with abscess (principal); K50.90 Crohn's disease, unspecified, without complications

== ENCOUNTER → 2024-12-26 | Outpatient (REF) | payer OTHER | LOC: M PLALAB 09:01 | PROVIDERS: ATTEND Physician Assistant | DX: R30.0 Dysuria (principal) ==

== ENCOUNTER → 2025-01-08 | Outpatient (REF) | payer OTHER ==
[2025-01-08 18:15] LABS: AMORPHOUS SEDIMENT SMALL (NEGATIVE); APPEARANCE, URINE CLOUDY (CLEAR); BACTERIA, URINE AUTO 1+ (NEGATIVE); BILIRUBIN, URINE AUTO NEGATIVE (NEGATIVE); BLOOD, URINE BLOOD NEGATIVE (NEGATIVE); GLUCOSE, URINE (UA) AUTO NEGATIVE (NEGATIVE); KETONE, URINE AUTO NEGATIVE (NEGATIVE); LEUKOCYTE ESTERASE, URINE AUTO 3+ (NEGATIVE); NITRITE, URINE AUTO NEGATIVE (NEGATIVE); PROTEIN, URINE AUTO NEGATIVE (NEGATIVE); RBC, URINE AUTO 4 /HPF (0-3); SPECIFIC GRAVITY URINE AUTO 1.008 (1.002-1.035); SQUAMOUS EPITHELIAL CELL UR AU 1 /HPF (0-6); UROBILINOGEN, URINE AUTO 0.2 mg/dL (0.0-2.0); WBC, URINE AUTO 109 /HPF (0-3)
== END ==
LOC: M LABDRWAD 16:49
PROVIDERS: ATTEND Internal Medicine Gastroenterology
DX: R82.90 Unspecified abnormal findings in urine (principal)

== ENCOUNTER → 2025-01-15 | Outpatient (CLI) | payer OTHER ==
[~2025-01-15] MED LIST changes: +ISOVUE-370 76% 100 ML VIAL ONE
== END ==
LOC: M PLAIMG 11:49
PROVIDERS: ATTEND Internal Medicine Gastroenterology
DX: K50.014 Crohn's disease of small intestine with abscess (principal); K50.90 Crohn's disease, unspecified, without complications
CPT/HCPCS: 74177; Q9967

== ENCOUNTER → 2025-01-17 | Outpatient (CLI) | payer OTHER ==
[~2025-01-17] MED LIST changes: -ISOVUE-370 76% 100 ML VIAL ONE
[2025-01-17 15:14] LABS: ALT/SGPT 16 U/L (7.0-40); AST/SGOT 16 U/L (<34); C REACTIVE PROTEIN QUANTITATIV < 0.50 MG/DL (<1.0); CALCIUM LEVEL 9.3 MG/DL (8.5-10.1); CARBON DIOXIDE LEVEL 29 MMOL/L (20-31); CHLORIDE LEVEL 105 MMOL/L (98-107); CREATININE FOR GFR 0.73 MG/DL (0.55-1.30); GLOMERULAR FILTRATION RATE > 90.0 (>60); POTASSIUM SERUM 3.4 MMOL/L (3.5-5.1); SODIUM LEVEL 143 MMOL/L (136-145)
[2025-01-17 15:16] LABS: PLATELET COUNT, AUTOMATED 465 10^3/uL (150-450)
[2025-01-17 15:35] LABS: ERYTHROCYTE SEDIMENTATION RATE 45 mm/hr (0-20)
== END ==
LOC: M LABDRWAD 09:06
PROVIDERS: ATTEND Internal Medicine Gastroenterology
DX: K50.90 Crohn's disease, unspecified, without complications (principal); R79.82 Elevated C-reactive protein (CRP); K50.014 Crohn's disease of small intestine with abscess

== ENCOUNTER → 2025-02-01 | Outpatient (CLI) | payer OTHER ==
[2025-02-01 12:04] LABS: PLATELET COUNT, AUTOMATED 349 10^3/uL (150-450)
[2025-02-01 12:38] LABS: ALT/SGPT 16 U/L (7.0-40); AST/SGOT 14 U/L (<34); C REACTIVE PROTEIN QUANTITATIV < 0.50 MG/DL (<1.0); CALCIUM LEVEL 9.1 MG/DL (8.5-10.1); CARBON DIOXIDE LEVEL 26 MMOL/L (20-31); CHLORIDE LEVEL 107 MMOL/L (98-107); CREATININE FOR GFR 0.74 MG/DL (0.55-1.30); GLOMERULAR FILTRATION RATE > 90.0 (>60); POTASSIUM SERUM 3.7 MMOL/L (3.5-5.1); SODIUM LEVEL 143 MMOL/L (136-145)
== END ==
LOC: M LAB 11:39
PROVIDERS: ATTEND Internal Medicine Gastroenterology
DX: K57.30 Diverticulosis of large intestine without perforation or abscess without bleeding (principal); K50.90 Crohn's disease, unspecified, without complications; R79.82 Elevated C-reactive protein (CRP)

== ENCOUNTER → 2025-02-07 | Outpatient (CLI) | payer OTHER ==
[~2025-02-07] MED LIST changes: +ISOVUE-370 76% 100 ML VIAL As Ordered ONE
== END ==
LOC: M RAD 11:13
PROVIDERS: ATTEND Internal Medicine Gastroenterology
DX: K50.014 Crohn's disease of small intestine with abscess (principal); K50.90 Crohn's disease, unspecified, without complications; R93.3 Abnormal findings on diagnostic imaging of other parts of digestive tract
CPT/HCPCS: 74177; Q9967

== ENCOUNTER → 2025-02-26 | Outpatient (CLI) | payer OTHER ==
[~2025-02-26] MED LIST changes: -ISOVUE-370 76% 100 ML VIAL As Ordered ONE
[2025-02-26 10:56] LABS: PLATELET COUNT, AUTOMATED 363 10^3/uL (150-450)
[2025-02-26 11:40] LABS: ALT/SGPT 15 U/L (7.0-40); AST/SGOT 16 U/L (<34); C REACTIVE PROTEIN QUANTITATIV < 0.50 MG/DL (<1.0); CALCIUM LEVEL 9.1 MG/DL (8.5-10.1); CARBON DIOXIDE LEVEL 28 MMOL/L (20-31); CHLORIDE LEVEL 106 MMOL/L (98-107); CREATININE FOR GFR 0.66 MG/DL (0.55-1.30); GLOMERULAR FILTRATION RATE > 90.0 (>60); POTASSIUM SERUM 3.7 MMOL/L (3.5-5.1); SODIUM LEVEL 141 MMOL/L (136-145)
== END ==
LOC: M LAB 10:07
PROVIDERS: ATTEND Internal Medicine Gastroenterology
DX: K50.90 Crohn's disease, unspecified, without complications (principal); R79.82 Elevated C-reactive protein (CRP); K50.014 Crohn's disease of small intestine with abscess; R30.0 Dysuria; R82.90 Unspecified abnormal findings in urine

== ENCOUNTER → 2025-03-01 | Outpatient (REF) | payer OTHER ==
[2025-03-01 13:25] LABS: APPEARANCE, URINE CLOUDY (CLEAR); BACTERIA, URINE AUTO 1+ (NEGATIVE); BILIRUBIN, URINE AUTO NEGATIVE (NEGATIVE); BLOOD, URINE BLOOD NEGATIVE (NEGATIVE); CALCIUM OXALATE CRYSTALS SMALL; GLUCOSE, URINE (UA) AUTO NEGATIVE (NEGATIVE); KETONE, URINE AUTO TRACE mg/dL (NEGATIVE); LEUKOCYTE ESTERASE, URINE AUTO 2+ (NEGATIVE); MUCUS, URINE MODERATE (NEGATIVE); NITRITE, URINE AUTO NEGATIVE (NEGATIVE); PROTEIN, URINE AUTO 1+ mg/dL (NEGATIVE); RBC, URINE AUTO 10 /HPF (0-3); SPECIFIC GRAVITY URINE AUTO 1.031 (1.002-1.035); SQUAMOUS EPITHELIAL CELL UR AU 5 /HPF (0-6); UROBILINOGEN, URINE AUTO 2.0 mg/dL (0.0-2.0); WBC, URINE AUTO TNTC /HPF (0-3)
== END ==
LOC: M LAB REF 12:17
PROVIDERS: ATTEND Internal Medicine Gastroenterology
DX: K50.90 Crohn's disease, unspecified, without complications (principal); B37.0 Candidal stomatitis; R30.0 Dysuria

== ENCOUNTER → 2025-03-02 | Outpatient (CLI) | payer OTHER ==
[2025-03-02 16:31] LABS: BASO # 0.1 10^3/uL (0.0-0.2); BASO % 0.4 % (0.0-1.0); EOS # 0.0 10^3/uL (0.0-0.5); EOS % 0.0 % (0.0-3.0); LYMPH # 0.9 10^3/uL (1.5-5.0); LYMPH % 6.0 % (24.0-44.0); MONO # 0.6 10^3/uL (0.0-0.8); MONO % 4.0 % (2.0-8.0); NEUTROPHILS # 14.0 10^3/uL (1.5-8.5); NEUTROPHILS % 89.2 % (36.0-66.0); PLATELET COUNT, AUTOMATED 446 10^3/uL (150-450)
[2025-03-02 16:53] LABS: CREATININE FOR GFR 0.71 MG/DL (0.55-1.30); GLOMERULAR FILTRATION RATE > 90.0 (>60)
== END ==
LOC: M PLALAB 13:50 → EEVIPCON 13:50
PROVIDERS: ATTEND Internal Medicine Gastroenterology
DX: K50.90 Crohn's disease, unspecified, without complications (principal); B37.0 Candidal stomatitis; R30.0 Dysuria

== ENCOUNTER → 2025-03-13 | Outpatient (CLI) | payer OTHER ==
[~2025-03-13] MED LIST changes: +ISOVUE-370 76% 100 ML VIAL ONE
== END ==
LOC: M PLAIMG 11:44
PROVIDERS: ATTEND Internal Medicine Gastroenterology
DX: K50.90 Crohn's disease, unspecified, without complications (principal)

== ENCOUNTER → 2025-03-14 | Outpatient (REF) | payer OTHER ==
[~2025-03-14] MED LIST changes: -ISOVUE-370 76% 100 ML VIAL ONE
[2025-03-14 14:35] LABS: APPEARANCE, URINE CLOUDY (CLEAR); BACTERIA, URINE AUTO NEGATIVE (NEGATIVE); BILIRUBIN, URINE AUTO NEGATIVE (NEGATIVE); BLOOD, URINE BLOOD NEGATIVE (NEGATIVE); CALCIUM OXALATE CRYSTALS MODERATE; GLUCOSE, URINE (UA) AUTO NEGATIVE (NEGATIVE); KETONE, URINE AUTO TRACE mg/dL (NEGATIVE); LEUKOCYTE ESTERASE, URINE AUTO 2+ (NEGATIVE); MUCUS, URINE MODERATE (NEGATIVE); NITRITE, URINE AUTO NEGATIVE (NEGATIVE); PROTEIN, URINE AUTO 1+ mg/dL (NEGATIVE); RBC, URINE AUTO 40 /HPF (0-3); SPECIFIC GRAVITY URINE AUTO 1.031 (1.002-1.035); SQUAMOUS EPITHELIAL CELL UR AU 0 /HPF (0-6); UROBILINOGEN, URINE AUTO 0.2 mg/dL (0.0-2.0); WBC, URINE AUTO TNTC /HPF (0-3)
== END ==
LOC: M SMT 13:13 → EEVIPCON 13:13
PROVIDERS: ATTEND Physician Assistant
DX: R82.90 Unspecified abnormal findings in urine (principal)

== ENCOUNTER → 2025-04-09 | Outpatient (REF) | payer OTHER ==
[2025-04-09 17:27] LABS: PLATELET COUNT, AUTOMATED 440 10^3/uL (150-450)
[2025-04-09 17:29] LABS: ALT/SGPT 19 U/L (7.0-40); AST/SGOT 12 U/L (<34); C REACTIVE PROTEIN QUANTITATIV 0.59 MG/DL (<1.0); CALCIUM LEVEL 9.3 MG/DL (8.5-10.1); CARBON DIOXIDE LEVEL 29 MMOL/L (20-31); CHLORIDE LEVEL 104 MMOL/L (98-107); CREATININE FOR GFR 0.75 MG/DL (0.55-1.30); GLOMERULAR FILTRATION RATE > 90.0 (>60); POTASSIUM SERUM 3.8 MMOL/L (3.5-5.1); SODIUM LEVEL 141 MMOL/L (136-145)
[2025-04-09 17:40] LABS: APPEARANCE, URINE CLOUDY (CLEAR); BACTERIA, URINE AUTO 1+ (NEGATIVE); BILIRUBIN, URINE AUTO NEGATIVE (NEGATIVE); BLOOD, URINE BLOOD 2+ (NEGATIVE); CALCIUM OXALATE CRYSTALS MODERATE; GLUCOSE, URINE (UA) AUTO NEGATIVE (NEGATIVE); KETONE, URINE AUTO NEGATIVE (NEGATIVE); LEUKOCYTE ESTERASE, URINE AUTO 3+ (NEGATIVE); MUCUS, URINE SMALL (NEGATIVE); NITRITE, URINE AUTO NEGATIVE (NEGATIVE); PROTEIN, URINE AUTO 1+ mg/dL (NEGATIVE); RBC, URINE AUTO 10 /HPF (0-3); SPECIFIC GRAVITY URINE AUTO 1.018 (1.002-1.035); SQUAMOUS EPITHELIAL CELL UR AU 2 /HPF (0-6); UROBILINOGEN, URINE AUTO 0.2 mg/dL (0.0-2.0); WBC, URINE AUTO TNTC /HPF (0-3)
== END ==
LOC: M LABDRWAD 16:34
PROVIDERS: ATTEND Internal Medicine Gastroenterology
DX: K50.90 Crohn's disease, unspecified, without complications (principal); R19.7 Diarrhea, unspecified; R79.82 Elevated C-reactive protein (CRP); R82.90 Unspecified abnormal findings in urine; R93.3 Abnormal findings on diagnostic imaging of other parts of digestive tract